=== PATIENT | male | born 1930 | race Caucasian/White ===

== ENCOUNTER 2016-11-21 13:44 | Inpatient (IN) | payer MEDICARE, MEDICAID ==
--- NOTE | 2016-11-21 14:10 | ED Physician Chart ---
Chief Complaint/HPI - Patient Information Date Seen:: 11/21/16 Time Seen:: 13:57 Chief Complaint:: abdominal pain History of Present Illness:: THIS IS AN 86 YO MALE DEMENTED PATIENT [facility] FOR EVALUATION OF HIS ABDOMINAL PAIN. Allergies:: Allergies Allergy/AdvReac Type Severity Reaction Status Date / Time Penicillins Allergy Verified 06/24/16 16:32 Historian:: Medical Records Review:: Nurse's Note Reviewed Review of Systems - Review of Systems General/Constitutional: Fever (THIS PATIENT CANNOT GIVE A REVIEW OF SYSTEMS.), No fever, No chills, No weight loss, No weakness, No diaphoresis, No edema, No loss of appetite Skin: No skin lesions, No rash, No bruising Head: No headache, No light-headedness Eyes: No loss of vision, No pain, No diplopia ENT: No earache, No nasal drainage, No sore throat, No tinnitus Neck: No neck pain, No swelling, No thyromegaly, No stiffness, No mass noted Cardio Vascular: No chest pain, No palpitations, No PND, No orthopnea, No edema Pulmonary: No SOB, No cough, No sputum, No wheezing GI: No nausea, No vomiting, No diarrhea, No pain, No melena, No hematochezia, No constipation, No hematemesis G/U: No dysuria, No frequency, No hematuria Musculoskeletal: No bone or joint pain, No back pain, No muscle pain Endocrine: No polyuria, No polydipsia Psychiatric: No prior psych history, No depression, No anxiety, No suicidal ideation Hematopoietic: No bruising, No lymphadenopathy Allergic/Immuno: No urticaria, No angioedema Neurological: No syncope, No focal symptoms, No weakness, No paresthesia, No headache, No seizure, No dizziness, No confusion, No vertigo Past Medical History - Past Medical History Obtainable: Yes Past Medical History: HTN, Asthma/COPD, Dementia Family History: None Social History: Non Smoker, No Alcohol, No Drug Use Surgical History: None Psychiatricy History: Schizophrenia, Dementia Family Medical History - Family Member Father History Unknown: Yes Physical Exam - Physical Examination General/Constitutional: Awake, Well-developed, well-nourished, Alert, No distress, GCS 15, Non-toxic appearing, Ambulatory Head: Atraumatic Eyes: Lids, conjuctiva normal, PERRL, EOMI Skin: Nl inspection, No rash, No skin lesions, No ecchymosis, Well hydrated, No lymphadenopathy ENMT: External ears, nose nl, Nasal exam nl, Lips, teeth, gums nl Neck: Nontender, Full ROM w/o pain, No JVD, No nuchal rigidity, No bruit, No mass, No stridor Respiratory: Nl effort/Exclusion, Clear to Auscultation, No Wheeze/Rhonchi/Rales Cardio Vascular: RRR, No murmur, gallop, rubs, NL S1 S2 GI: No tenderness/rebounding/guarding, No organomegaly, No hernia, Normal BS's, Nondistended, No mass/bruits, No McBurney tenderness : No CVA tenderness Extremities: No tenderness or effusion, Full ROM, normal strength in all extremities, No edema, Normal digits & nails Neuro/Psych: DTR's symmetric, Normal sensory exam, Normal motor strength, Judgement/insight normal, Mood normal, Normal gait, No focal deficits Other Neuro/Psych comments:: THE PATIENT IS DISORIENTED AND CONFUSED BUT ALERT. Misc: normal gait, Normal back, No paraspinal tenderness Labs/Radiology/EKG Results - Lab Results Results: Laboratory Results - last 24 hr 11/21/16 11/21/16 11/21/16 14:10 17:28 17:28 WBC RBC Hgb Hct MCV MCH MCHC Differential RDW Plt Count MPV Neutrophils % Lymphocytes % Monocytes % Eosinophils % Basophils % PT 9.7 INR 0.98 PTT (Actin FS) 25.0 L Sodium Potassium Chloride Carbon Dioxide Anion Gap BUN Creatinine Est GFR ( Amer) Est GFR (Non-Af Amer) BUN/Creatinine Ratio Glucose Calcium Total Bilirubin AST ALT Alkaline Phosphatase Troponin I Total Protein Albumin Globulin Albumin/Globulin Ratio Triglycerides 426 H Cholesterol 153 LDL Cholesterol Direct 69 L HDL Cholesterol 30 Urine Source CLEAN C Urine Color YELLOW Urine Clarity CLOUDY Urine pH 7.0 Ur Specific [place] 1.020 Urine Protein 30 H Urine Glucose (UA) NEGATIVE Urine Ketones NEGATIVE Urine Blood MODERATE H Urine Nitrate POSITIVE H Urine Bilirubin NEGATIVE Urine Urobilinogen 0.2 Ur Leukocyte Esterase LARGE H Urine RBC 2-5 H Urine WBC >100 H Ur Epithelial Cells FEW Urine Bacteria MANY 11/21/16 11/21/16 11/21/16 17:28 17:28 17:28 WBC 6.3 D RBC 3.52 L Hgb 11.1 L Hct 32.4 L D MCV 92.1 MCH 31.5 H MCHC Differential 34.2 RDW 12.4 Plt Count 297 MPV 7.7 Neutrophils % 63.0 Lymphocytes % 23.7 Monocytes % 8.3 Eosinophils % 4.1 Basophils % 0.9 PT INR PTT (Actin FS) Sodium 139 Potassium 4.3 Chloride 111 H Carbon Dioxide 25.1 Anion Gap 7.2 BUN 46 H Creatinine 1.5 H Est GFR ( Amer) TNP Est GFR (Non-Af Amer) TNP BUN/Creatinine Ratio 30.7 Glucose 113 H Calcium 9.1 Total Bilirubin 0.3 AST 19 ALT 15 Alkaline Phosphatase 74 Troponin I 0.01 Total Protein 6.4 Albumin 3.2 L Globulin 3.2 Albumin/Globulin Ratio 1.0 Triglycerides Cholesterol LDL Cholesterol Direct HDL Cholesterol Urine Source Urine Color Urine Clarity Urine pH Ur Specific [place] Urine Protein Urine Glucose (UA) Urine Ketones Urine Blood Urine Nitrate Urine Bilirubin Urine Urobilinogen Ur Leukocyte Esterase Urine RBC Urine WBC Ur Epithelial Cells Urine Bacteria - Radiology Results Results: no acute disease - EKG Interpretations EKG Time:: 14:28 Rhythm: bradycardia Central: right Rate: 49 ED Septic Shock - . Is Septic Shock (SBP<90, OR Lactate>4 mmol\L) present?: No Reassessment (Disposition) - Reassessment Reassessment Condition:: Unchanged - Diagnosis Diagnosis:: urinary tract infection renal failure dementia bradycardia - Patient Disposition Discharge/Transfer:: Acute Care w/in this hosp Admitted to:: Telemetry Admitting Medical Physician:: Emery Teran Condition at Disposition:: Improved
[2016-11-21 14:40] LABS: URINE BILIRUBIN NEGATIVE (NEGATIVE); URINE BLOOD MODERATE (NEGATIVE); URINE COLOR YELLOW; URINE GLUCOSE (UA) NEGATIVE (NEGATIVE); URINE KETONE NEGATIVE (NEGATIVE); URINE PROTEIN 30 mg/dL (NEGATIVE); URINE UROBILINOGEN 0.2 E.U./dL (0.2 - 1.0)
[2016-11-21 14:46] LABS: URINE BACTERIA MANY /hpf (NONE SEEN); URINE EPITHELIAL CELLS FEW /lpf (FEW)
[2016-11-21 14:47] LABS: URINE WBC >100 /hpf (0-5)
--- NOTE | 2016-11-21 14:56 | Diagnostic Imaging Report ---
Portable chest x-ray History: Shortness of breath Allowing for portable technique the heart size is normal. Atherosclerotic calcification seen in a tortuous aorta. No focal pulmonary parenchymal processes. No hilar or mediastinal abnormalities. Impression: 1. No acute abnormalities 2. Atherosclerotic vascular changes
[2016-11-21 17:44] LABS: % BASOPHILS 0.9 % (0.0-2.0); % EOSINOPHILS 4.1 % (0.0-5.0); % LYMPHOCYTES 23.7 % (20.0-50.0); % MONOCYTES 8.3 % (2.0-10.0); HEMOGLOBIN 11.1 gm/dL (12.6-17.4); MEAN CELL VOLUME 92.1 fl (80-99); MEAN CORPUSCULAR HEMOGLOBIN 31.5 pg (27.0-31.0); MEAN CORPUSCULAR HGB CONC 34.2 pg (28.0-36.0); MEAN PLATELET VOLUME 7.7 fl; NEUTROPHILE ABSOLUTE 3.9 Th/cmm (1.8-8.0); PLATELET COUNT 297 Th/cmm (150-400); RED BLOOD COUNT 3.52 Mil/cmm (3.80-5.80); RED CELL DISTRIBUTION WIDTH 12.4 % (11.5-20.0)
[2016-11-21 17:46] LABS: HEMATOCRIT 32.4 % (39.0-49.0)
[2016-11-21 17:47] LABS: WHITE BLOOD COUNT 6.3 Th/cmm (4.8-10.8)
[2016-11-21 17:51] LABS: INR 0.98 (0.5-1.4); PROTHROMBIN TIME (TEST) 9.7 SECONDS (9.5-11.5)
[2016-11-21 17:54] LABS: ALKALINE PHOSPHATASE 74 U/L (34-104); ANION GAP 7.2 (7.0-16.0); BILIRUBIN,TOTAL 0.3 mg/dL (0.3-1.0); BUN - UREA NITROGEN 46 mg/dL (7-25); BUN/CREATININE RATIO 30.7; CALCIUM SERUM 9.1 mg/dL (8.6-10.3); CARBON DIOXIDE 25.1 mEq/L (21.0-31.0); CHLORIDE 111 mEq/L (98-107); CREATININE - SERUM 1.5 mg/dL (0.7-1.3); GLUCOSE 113 mg/dL (70-105); POTASSIUM SERUM 4.3 mEq/L (3.5-5.1); SGOT 19 U/L (13-39); SGPT/ALT 15 U/L (7-52); SODIUM SERUM 139 mEq/L (136-145)
[2016-11-21 17:55] LABS: CHOLESTEROL 153 mg/dL (<200); TRIGLYCERIDES 426 mg/dL (<150)
[2016-11-21] MEDS ORDERED: Levofloxacin 500mg/100mL 500 MG/100 ML BAG IV ONE ×2 (22:00→23:15)
--- NOTE | 2016-11-21 22:33 | Admit Criteria Form ---
Admit Criteria Forms - Admit Criteria Diagnosis: URINARY COMPLICATIONS Clinical Indications for Inpatient Care (Place 'X' for any and all applicable criteria): Ongoing inpatient care may be indicated for urinary complications with ANY ONE of the following: [X]I. Urinary tract infection requiring inpatient care as indicated by ANY ONE of the following(8)(19)(20): [X]a) Severe symptoms (eg, high fever, severe pain) [ ]b) Vomiting or dehydration requiring ongoing inpatient care [ ]c) IV antibiotic needs that cannot be managed at lower level of care [ ]d) Hemodynamic instability [ ]e) Obstruction of collecting system by stone or tumor [ ]II. Urinary retention requiring drainage or surgery (3)(4)(5)(17)(18) [ ]III. Renal failure (Use Renal Failure Criteria for further information.) [ ]IV. Oliguria(30) [ ]V. Post obstructive diuresis requiring close monitoring of urine output and intravenous compensation for excessive fluid losses(33) Extended stay beyond goal length of stay for primary condition may be needed until ALL of the following are present(3)(4)(5)(8): [ ]a) Renal function (creatinine) at baseline, or daily decreases in creatinine consistent with renal function return [ ]b) Voiding adequately or with urinary catheter or percutaneous suprapubic tube and management regimen in place that is performable at lower level of care. [ ]c) Urine output adequate [ ]d) Fever absent or resolving [ ]e) Infection absent or treatable at next level of care The original [employer] content created by [employer] has been revised. The portions of the content which have been revised are identified through the use of italic text or in bold, and [email or web address] has neither reviewed nor approved the modified material. All other unmodified content is copyright [email or web address] Please see references footnoted in the original [facility] [employer] Twitter Dashboard edition 2016 Admit Criteria Met?: Yes
[2016-11-21] MEDS: Sodium Chloride 0.9% 1,000 ML IV SCH (23:20)
--- NOTE | 2016-11-22 08:38 | General Progress Note ---
Subjective - Review of Systems Service Date: 11/22/16 Subjective: I do not know why I am here. Objective - Results Result Diagrams: 11/21/16 17:28 11/21/16 17: Recent Labs: Laboratory Last Values WBC 6.3 Th/cmm (4.8-10.8) D 11/21/16: RBC 3.52 Mil/cmm (3.80-5.80) L 11/21/16: Hgb 11.1 gm/dL (12.6-17.4) L 11/21/16: Hct 32.4 % (39.0-49.0) L D 11/21/16: MCV 92.1 fl (80-99) 11/21/16: MCH 31.5 pg (27.0-31.0) H 11/21/16: MCHC Differential 34.2 pg (28.0-36.0) 11/21/16: RDW 12.4 % (11.5-20.0) 11/21/16: Plt Count 297 Th/cmm (150-400) 11/21/16: MPV 7.7 fl 11/21/16: Neutrophils % 63.0 % (40.0-80.0) 11/21/16: Lymphocytes % 23.7 % (20.0-50.0) 11/21/16: Monocytes % 8.3 % (2.0-10.0) 11/21/16: Eosinophils % 4.1 % (0.0-5.0) 11/21/16: Basophils % 0.9 % (0.0-2.0) 11/21/16: PT 9.7 SECONDS (9.5-11.5) 11/21/16: INR 0.98 (0.5-1.4) 11/21/16: PTT (Actin FS) 25.0 SECONDS (26.0-38.0) L 11/21/16 17: Sodium 139 mEq/L (136-145) 11/21/16: Potassium 4.3 mEq/L (3.5-5.1) 11/21/16: Chloride 111 mEq/L (98-107) H 11/21/16 17:28 Carbon Dioxide 25.1 mEq/L (21.0-31.0) 11/21/16 17:28 Anion Gap 7.2 (7.0-16.0) 11/21/16 17:28 BUN 46 mg/dL (7-25) H 11/21/16 17:28 Creatinine 1.5 mg/dL (0.7-1.3) H 11/21/16 17:28 Est GFR ( Amer) TNP 11/21/16 17:28 Est GFR (Non-Af Amer) TNP 11/21/16 17:28 BUN/Creatinine Ratio 30.7 11/21/16 17: Glucose 113 mg/dL (70-105) H 11/21/16 17: Calcium 9.1 mg/dL (8.6-10.3) 11/21/16 17:28 Total Bilirubin 0.3 mg/dL (0.3-1.0) 11/21/16 17:28 AST 19 U/L (13-39) 11/21/16 17:28 ALT 15 U/L (7-52) 11/21/16 17:28 Alkaline Phosphatase 74 U/L (34-104) 11/21/16 17:28 Troponin I 0.01 ng/mL (0.01-0.05) 11/21/16 17:28 Total Protein 6.4 gm/dL (6.0-8.3) 11/21/16 17:28 Albumin 3.2 gm/dL (4.2-5.5) L 11/21/16 17:28 Globulin 3.2 gm/dL 11/21/16 17:28 Albumin/Globulin Ratio 1.0 (1.0-1.8) 11/21/16 17:28 Triglycerides 426 mg/dL (<150) H 11/21/16 17:28 Cholesterol 153 mg/dL (<200) 11/21/16 17:28 LDL Cholesterol Direct 69 mg/dL (75-193) L 11/21/16 17:28 HDL Cholesterol 30 mg/dL (23-92) 11/21/16 17:28 TSH 3.65 uIU/ml (0.34-5.60) 11/21/16 17:28 Urine Source CLEAN C 11/21/16 14:10 Urine Color YELLOW 11/21/16 14:10 Urine Clarity CLOUDY (CLEAR) 11/21/16 14:10 Urine pH 7.0 11/21/16 14:10 Ur Specific [place] 1.020 (1.005-1.030) 11/21/16 14:10 Urine Protein 30 mg/dL (NEGATIVE) H 11/21/16 14:10 Urine Glucose (UA) NEGATIVE mg/dL (NEGATIVE) 11/21/16 14:10 Urine Ketones NEGATIVE mg/dL (NEGATIVE) 11/21/16 14:10 Urine Blood MODERATE (NEGATIVE) H 11/21/16 14:10 Urine Nitrate POSITIVE (NEGATIVE) H 11/21/16 14:10 Urine Bilirubin NEGATIVE (NEGATIVE) 11/21/16 14:10 Urine Urobilinogen 0.2 E.U./dL (0.2 - 1.0) 11/21/16 14:10 Ur Leukocyte Esterase LARGE (NEGATIVE) H 11/21/16 14:10 Urine RBC 2-5 /hpf (0-5) H 11/21/16 14:10 Urine WBC >100 /hpf (0-5) H 11/21/16 14:10 Ur Epithelial Cells FEW /lpf (FEW) 11/21/16 14:10 Urine Bacteria MANY /hpf (NONE SEEN) 11/21/16 14:10 RPR NONREACTIVE (NONREACTIVE) 11/21/16 17:28 - Physical Exam Vitals and I&O: Vital Signs Temp 97.1 F 11/22/16 04:05 Pulse 60 11/22/16 04:05 Resp 18 11/22/16 04:05 BP 130/68 11/22/16 04:05 Pulse Ox 96 11/22/16 04:05 Intake & Output 11/21/16 11/22/16 11/22/16 18:59 06:59 18:59 Intake Total 120 Balance 120 Intake: Oral 120 Other: # Voids 3 # Bowel Movements 0 Active Medications: Current Medications Acetaminophen (Tylenol) 650 mg PO Q4HR PRN PRN Reason: Pain Or Fever >100.5 Stop: 01/20/17 21:45 Clonidine HCl (Catapres) 0.1 mg PO Q12H PRN PRN Reason: SBP> 160 OR DBP> 100 Stop: 01/20/17 21:45 Docusate Sodium (Colace) 200 mg PO DAILY [facility] Stop: 01/21/17 08:59 Sodium Chloride (Nacl 0.9%) 1,000 mls @ 75 mls/hr IV .[id number] ADAN Stop: 01/20/17 21:59 Last Admin: 11/21/16 23:20 Dose: 75 mls/hr Levofloxacin (Levaquin Pb) 250 mg in 50 mls @ 50 mls/hr IV Q24HR ADAN Stop: 01/21/17 20:59 Lorazepam (Ativan) 1 mg IVP Q6HR PRN; Protocol PRN Reason: Agitation Stop: 01/20/17 21:52 Miscellaneous (Haloperidol Decanoate [Haldol Decanoate]) 25 mg IM [id number] ADAN Stop: 01/20/17 21:59 Olmesartan (Benicar) 20 mg PO DAILY [facility] Stop: 01/21/17 08:59 General: Alert, Other (Confused) HEENT: Atraumatic Neck: Supple Cardiovascular: Regular rate Lungs: Clear to auscultation Abdomen: Bowel sounds, Soft Extremities: Other (No edema) Neurological: Normal gait Skin: Other (Warm and dry) Psych/Mental Status: Other (Confused) - Procedures Procedures: Procedures Procedure Code Date GROUP PSYCHOTHERAPY 49879 12/28/15 GROUP PSYCHOTHERAPY [id number] 12/28/15 INDIVID PSYCHOTHERAP NEC 94.39 09/01/09 OTHER GROUP THERAPY 94.44 04/04/15 RECREATIONAL THERAPY 93.81 12/08/09 Assessment/Plan - Problem List Patient Problems: All Active Problems Chronic obstructive pulmonary disease (COPD) (Acute) Hypertension (Acute) I10 Itching (Acute) L29.9 Mental health problem (Acute) F48.9 Mood swings (Acute) F39 - Assessment Assessment: Patient is awake, confused, not oriented. Dx: UTI, Bradychardia, JEREMIAS, HTN, Dementia. - Plan Plan: Patient on IV NS, Levaquin, SNF meds, awaiting Cardio and Nephro eval.
--- NOTE | 2016-11-22 10:39 | History & Physical ---
CHIEF COMPLAINT: Abdominal pain. HISTORY OF PRESENT ILLNESS: This is a case of an 86-year-old white male that I follow in the snf. I got a call from snf stating the patient has been complaining of abdominal pain, reason why the patient was sent to Emergency Room for evaluation and treatment. During the evaluation in ER, it was found that the patient had bradycardia and UTI, reason why the patient was hospitalized. PAST MEDICAL HISTORY: The patient has past medical history of hypertension, COPD and dementia. FAMILY HISTORY: Unremarkable. SOCIAL HISTORY: The patient is a permanent resident of a snf. ALLERGIES: PENICILLIN. PAST SURGICAL HISTORY: None. REVIEW OF SYSTEMS: LUNGS: The patient denies shortness of breath. HEART: The patient denies chest pain. ABDOMEN: The patient referred abdominal pain. EXTREMITIES: Unremarkable. NEUROLOGICAL: Unremarkable. The patient is ____. The patient is confused. PHYSICAL EXAMINATION: GENERAL: Does reveal a fairly nourished and developed white male, awake, alert and complaining of abdominal pain. HEENT: Head is normocephalic and atraumatic. Eyes: Pupils reactive to light. Fundi not examined at this time. Nose: No evidence of nasal obstruction. Ears: No evidence of any discharge. Mouth: Fairly ____. LUNGS: Bilateral air entry. No wheezing, no crackles. HEART: Regular rate and rhythm with some bradycardia. ABDOMEN: Soft and ____. Bowel sound is present. EXTREMITIES: No edema. Full movement of all extremities. NEUROLOGICAL: The patient is awake, alert, confused, not oriented. Neurological examination was not completed secondary to the patient's mental confusion. DIAGNOSES: 1. Urinary tract infection. 2. Bradycardia. 3. Acute renal failure. 4. Dementia. PLAN: 1. The patient will be admitted in the telemetry unit. 2. Consult with Cardiology. 3. Consult with Nephrology. 4. Continue with snf medications. 5. Levaquin IV. 6. DIET: Low in sodium. 7. CBC, CMP at a.m. JOB# [id number]
[2016-11-22] MEDS ORDERED: Influenza Vaccine 0.5 mL Syr IM ONE (13:37)
[2016-11-22] MEDS: Sodium Chloride 0.9% 1,000 ML IV SCH (15:43)
[2016-11-22] MEDS ORDERED: Levofloxacin 250 mg/50 mL Premix Bag IV SCH (21:00)
--- NOTE | 2016-11-23 02:22 | Consultation ---
Patient of Dr. Emery Teran. HISTORY AND PHYSICAL: This is an 86-year-old male patient who has a known history of hypertension, came into the hospital from residential with abdominal pain, no nausea. The patient had sinus bradycardia and hence, Cardiology consult was requested. PAST MEDICAL HISTORY: Hypertension, dementia and COPD. FAMILY HISTORY: Unremarkable. SOCIAL HISTORY: No history of smoking, alcohol abuse. ALLERGIES: None. PHYSICAL EXAMINATION: VITAL SIGNS: Blood pressure 130/80, pulse 60, respirations 20. HEAD: Normocephalic. No lumps or bumps. EYES: Pupils equal, reactive to light. Fundi show AV nicking. Sclerae white. Conjunctivae pink. NECK: Carotid 2+. Normal upstroke. JVD flat. Thyroid not palpable. Lymph nodes not palpable. CHEST: Shows increased AP diameter. No kyphosis, scoliosis. LUNGS: Bilateral bronchovesicular breath sounds. HEART: PMI is in fifth intercostal space with lateral to midclavicular line. S1, S2. No S3, S4. Systolic murmur grade 2/6 in the lower left sternal border without radiation. ABDOMEN: Soft. Liver, spleen not palpable. Mild tenderness. No rebound tenderness. Bowel sounds active. RECTAL: Prostate is enlarged. EXTREMITIES: Peripheral pulses 2+. No pedal edema. CLINICAL IMPRESSION: 1. Urinary tract infection. 2. Sinus bradycardia. 3. Chronic kidney disease, stage II. 4. Dementia. 5. Benign prostatic hypertrophy. 6. Chronic obstructive pulmonary disease. PLAN: The patient to continue present care. Monitor the patient on telemetry bed. Also get an echocardiogram. JOB# [id number]
--- NOTE | 2016-11-23 06:21 | Consultation ---
ATTENDING PHYSICIAN: Emery Teran M.D. CONSULTING PHYSICIAN: Yovany Payton M.D. REASON FOR CONSULTATION: Worsening kidney function, electrolyte imbalance and fluid management. HISTORY OF PRESENT ILLNESS: This is an 86-year-old male with past medical history of COPD who came in because of right lower quadrant abdominal pain. A few hours prior to admission, the patient experienced right lower quadrant abdominal pain. He had no nausea and vomiting, diarrhea, constipation, fever/chills, dysuria, hematuria nor frequency. He had foul smelling urine. He was then brought to the Emergency Room. His white count was 6.3. Urinalysis was suggestive of UTI and chest x-ray revealed no acute disease. PAST MEDICAL HISTORY: 1. COPD. 2. Essential hypertension. 3. Alzheimer dementia. 4. Schizophrenia. 5. Bronchial asthma. CURRENT MEDICATIONS: He is currently on acetaminophen, docusate, haloperidol, levofloxacin, lorazepam, olmesartan, ceftriaxone and clonidine. ALLERGY: Penicillin. SOCIAL HISTORY: No history of smoking as well as alcohol consumption. He is currently retired, but does not remember his previous occupation. FAMILY HISTORY: Noncontributory to present illness. REVIEW OF SYSTEMS: GENERAL: The patient had no fever and no chills. Appetite had been fair. Has generalized weakness. HEENT: No mention of headaches nor dizziness. Vision and hearing acuity has diminished. CARDIORESPIRATORY: He has a history of COPD. However, at the moment he has no shortness of breath, chest pain, palpitations, diaphoresis or cough. GASTROINTESTINAL: He had no nausea and vomiting, abdominal pain or cramping, hematemesis, melena or hematochezia and no diarrhea. ENDOCRINE: No history of diabetes or thyroid abnormalities nor dyslipidemia. MUSCULOSKELETAL: Multiple joint arthralgias. GENITOURINARY: No history of kidney failure in the past. However, he comes in now with some kidney insufficiency. HEMATOLOGIC: He has mild anemia. NEUROLOGIC AND PSYCHIATRIC: History of schizophrenia and Alzheimer's dementia. However, does not have any syncopal episode nor seizure activity. PHYSICAL EXAMINATION: NEUROLOGIC: The patient is awake, verbal and comfortable. VITAL SIGNS: Blood pressure is 141/68, pulse 56 and temperature 97.1 degrees. SKIN: Good turgor and warm. No rash or jaundice appreciated. HEENT: Head: Normocephalic and atraumatic. Eyes: Extraocular muscles intact. Pupils equal, round and reactive to light and accommodates, anicteric sclerae, pink conjunctivae. Nose: Midline nasal septum. Mouth: Moist mucosa with adequate dentition. NECK: Supple. No adenopathy, no thyromegaly and no bruits. Trachea palpated in the midline. CHEST AND CVS: S1 and S2, bradycardic, but no rub or murmur nor gallop appreciated. Point of maximal impulse is in the fifth intercostal space, left midclavicular line. No abdominal or femoral bruits appreciated. LUNGS: Equal expansion. No use of accessory muscles. No supraclavicular retractions. Clear to auscultation without any wheeze. ABDOMEN: Flat and soft. Positive for bowel sounds. No tenderness on palpation especially in his right lower quadrant. No rebound, nor guarding. No bruits either diastolic or systolic. RECTAL: The patient refused. GENITOURINARY: Normal appearing male genitalia. MUSCULOSKELETAL: No effusions present in his joints, but unable to assess his range of motion. EXTREMITIES: No evidence of edema, cyanosis nor clubbing with palpable femoral, but unable to fully appreciate popliteal and dorsalis pedis pulses. NEUROLOGIC: The patient is alert and verbal. Motor is 5/5. Cranial nerves 2-12 intact. Sensory intact. LABORATORY DATA: Sodium 139, potassium 4.3, chloride 111, bicarbonate 25, BUN 46, creatinine 1.5, glucose 113, calcium 9.1 and albumin 3.2. White count 6.3, hemoglobin 11.1, hematocrit is 32.4, polys 63% and platelets 297. TSH is 3.65. IMPRESSION: 1. Acute kidney injury, MDRD GFR 47.1 mL per minute. The patient's acute kidney injury is likely due to presence of ongoing urinary tract infection. ____ could eventually give rise to acute interstitial nephritis. 2. COPD. 3. Essential hypertension. 4. Alzheimer dementia. 5. Schizophrenia. 6. Bronchial asthma. 7. Asymptomatic paroxysmal bradycardia. 8. Abdominal pain likely due to complicated UTI. PLAN: 1. Continue with IV fluids. 2. Urine C and S. 3. Urine sodium, eosinophils and creatinine. 4. Urine microalbumin to creatinine ratio. 5. Abdominal/renal ultrasound. 6. Continue with antibiotics. Thank you, Dr. Teran for this consult. I will follow the patient closely with you. JOB# [id number]
--- NOTE | 2016-11-23 14:18 | General Progress Note ---
Subjective - Review of Systems Service Date: 11/23/16 Subjective: alert, refusing blood draw Objective - Results Result Diagrams: 11/21/16 17:11/21/16: Recent Labs: Laboratory Last Values WBC 6.3 Th/cmm (4.8-10.8) D 11/21/16: RBC 3.52 Mil/cmm (3.80-5.80) L 11/21/16: Hgb 11.1 gm/dL (12.6-17.4) L 11/21/16: Hct 32.4 % (39.0-49.0) L D 11/21/16: MCV 92.1 fl (80-99) 11/21/16: MCH 31.5 pg (27.0-31.0) H 11/21/16: MCHC Differential 34.2 pg (28.0-36.0) 11/21/16: RDW 12.4 % (11.5-20.0) 11/21/16: Plt Count 297 Th/cmm (150-400) 11/21/16: MPV 7.7 fl 11/21/16: Neutrophils % 63.0 % (40.0-80.0) 11/21/16: Lymphocytes % 23.7 % (20.0-50.0) 11/21/16 Monocytes % 8.3 % (2.0-10.0) 11/21/16 Eosinophils % 4.1 % (0.0-5.0) 11/21/16: Basophils % 0.9 % (0.0-2.0) 11/21/16: PT 9.7 SECONDS (9.5-11.5) 11/21/16: INR 0.98 (0.5-1.4) 11/21/16 PTT (Actin FS) 25.0 SECONDS (26.0-38.0) L 11/21/16: Sodium 139 mEq/L (136-145) 11/21/16: Potassium 4.3 mEq/L (3.5-5.1) 11/21/16: Chloride 111 mEq/L (98-107) H 11/21/16 17:28 Carbon Dioxide 25.1 mEq/L (21.0-31.0) 11/21/16 17:28 Anion Gap 7.2 (7.0-16.0) 11/21/16 17:28 BUN 46 mg/dL (7-25) H 11/21/16 17:28 Creatinine 1.5 mg/dL (0.7-1.3) H 11/21/16 17:28 Est GFR ( Amer) TNP 11/21/16 17:28 Est GFR (Non-Af Amer) TNP 11/21/16 17:28 BUN/Creatinine Ratio 30.7 11/21/16 17:28 Glucose 113 mg/dL (70-105) H 11/21/16 17:28 Calcium 9.1 mg/dL (8.6-10.3) 11/21/16 17:28 Total Bilirubin 0.3 mg/dL (0.3-1.0) 11/21/16 17:28 AST 19 U/L (13-39) 11/21/16 17:28 ALT 15 U/L (7-52) 11/21/16 17:28 Alkaline Phosphatase 74 U/L (34-104) 11/21/16 17:28 Troponin I 0.01 ng/mL (0.01-0.05) 11/21/16 17:28 Total Protein 6.4 gm/dL (6.0-8.3) 11/21/16 17:28 Albumin 3.2 gm/dL (4.2-5.5) L 11/21/16 17:28 Globulin 3.2 gm/dL 11/21/16 17:28 Albumin/Globulin Ratio 1.0 (1.0-1.8) 11/21/16 17:28 Triglycerides 426 mg/dL (<150) H 11/21/16 17:28 Cholesterol 153 mg/dL (<200) 11/21/16 17:28 LDL Cholesterol Direct 69 mg/dL (75-193) L 11/21/16 17:28 HDL Cholesterol 30 mg/dL (23-92) 11/21/16 17:28 TSH 3.65 uIU/ml (0.34-5.60) 11/21/16 17:28 Urine Source CLEAN C 11/21/16 14:10 Urine Color YELLOW 11/21/16 14:10 Urine Clarity CLOUDY (CLEAR) 11/21/16 14:10 Urine pH 7.0 11/21/16 14:10 Ur Specific [place] 1.020 (1.005-1.030) 11/21/16 14:10 Urine Protein 30 mg/dL (NEGATIVE) H 11/21/16 14:10 Urine Glucose (UA) NEGATIVE mg/dL (NEGATIVE) 11/21/16 14:10 Urine Ketones NEGATIVE mg/dL (NEGATIVE) 11/21/16 14:10 Urine Blood MODERATE (NEGATIVE) H 11/21/16 14:10 Urine Nitrate POSITIVE (NEGATIVE) H 11/21/16 14:10 Urine Bilirubin NEGATIVE (NEGATIVE) 11/21/16 14:10 Urine Urobilinogen 0.2 E.U./dL (0.2 - 1.0) 11/21/16 14:10 Ur Leukocyte Esterase LARGE (NEGATIVE) H 11/21/16 14:10 Urine RBC 2-5 /hpf (0-5) H 11/21/16 14:10 Urine WBC >100 /hpf (0-5) H 11/21/16 14:10 Ur Epithelial Cells FEW /lpf (FEW) 11/21/16 14:10 Urine Bacteria MANY /hpf (NONE SEEN) 11/21/16 14:10 RPR NONREACTIVE (NONREACTIVE) 11/21/16 17:28 - Physical Exam Vitals and I&O: Vital Signs Temp 97.7 F 11/23/16 12:28 Pulse 62 11/23/16 12:28 Resp 18 11/23/16 12:28 BP 111/69 11/23/16 12:28 Pulse Ox 94 11/23/16 12:28 Intake & Output 11/22/16 11/23/16 11/23/16 18:59 06:59 18:59 Intake Total 400 200 Balance 400 200 Intake: Oral 400 200 Other: # Voids 3 3 # Bowel Movements 0 0 Active Medications: Current Medications Acetaminophen (Tylenol) 650 mg PO Q4HR PRN PRN Reason: Pain Or Fever >100.5 Stop: 01/20/17 21:45 Clonidine HCl (Catapres) 0.1 mg PO Q12H PRN PRN Reason: SBP> 160 OR DBP> 100 Stop: 01/20/17 21:45 Docusate Sodium (Colace) 200 mg PO DAILY [facility] Stop: 01/21/17 08:59 Last Admin: 11/23/16 09:08 Dose: Not Given Haloperidol Decanoate (Haldol Dec) 25 mg IM [id number] [facility] Stop: 01/21/17 16:59 Last Admin: 11/22/16 18:10 Dose: 25 mg Sodium Chloride (Nacl 0.9%) 1,000 mls @ 75 mls/hr IV [id number] ADAN Stop: 01/20/17 21:59 Last Admin: 11/22/16 15:43 Dose: Not Given Levofloxacin (Levaquin Pb) 250 mg in 50 mls @ 50 mls/hr IV Q24HR ADAN Stop: 01/21/17 20:59 Last Admin: 11/22/16 22:00 Dose: Not Given Lorazepam (Ativan) 1 mg IVP Q6HR PRN; Protocol PRN Reason: Agitation Stop: 01/20/17 21:52 Lorazepam (Ativan) 1 mg IM Q6HR PRN; Protocol PRN Reason: Agitation Stop: 01/21/17 22:24 Last Admin: 11/23/16 00:23 Dose: 1 mg Lorazepam (Ativan) 0.5 mg PO Q4HR PRN; Protocol PRN Reason: Anxiety Stop: 01/22/17 13:43 Olmesartan (Benicar) 20 mg PO DAILY [facility] Stop: 01/21/17 08:59 Last Admin: 11/23/16 09:08 Dose: Not Given General: Alert, No acute distress, Other (uncooperative) HEENT: Atraumatic, Mucous membr. moist/pink Neck: Supple, +2 carotid pulse wo bruit Cardiovascular: Regular rate, Normal S1, Normal S2 Lungs: Clear to auscultation Abdomen: Bowel sounds, Soft Extremities: no Edema Neurological: Sensation intact Skin: no Rash Psych/Mental Status: Other (uncooperative) - Procedures Procedures: Procedures Procedure Code Date GROUP PSYCHOTHERAPY 66431 12/28/15 GROUP PSYCHOTHERAPY GZHZZZZ 12/28/15 INDIVID PSYCHOTHERAP NEC 94.39 09/01/09 OTHER GROUP THERAPY 94.44 04/04/15 RECREATIONAL THERAPY 93.81 12/08/09 Assessment/Plan - Problem List Patient Problems: All Active Problems Chronic obstructive pulmonary disease (COPD) (Acute) Hypertension (Acute) I10 Itching (Acute) L29.9 Mental health problem (Acute) F48.9 Mood swings (Acute) F39 - Assessment Assessment: aissatou copd ess htn alzh dementia BA ASx paroxysmal daryl abd pain 2nd to Cx UTI - Plan Plan: continue ivf encourage po intake remains ASx w/ regard to daryl
== END 2016-11-23 18:16 | DRG 683 ==
LOC: ER 13:44 → TELE 19:21 → MSI 11-23 08:44
PROVIDERS: ADMIT General Practice; ATTEND General Practice
DX: N17.9 Acute kidney failure, unspecified (principal); N39.0 Urinary tract infection, site not specified; R00.1 Bradycardia, unspecified; J44.9 Chronic obstructive pulmonary disease, unspecified; F20.9 Schizophrenia, unspecified; N40.0 Benign prostatic hyperplasia without lower urinary tract symptoms; G30.9 Alzheimer's disease, unspecified; F02.80 Dementia in other diseases classified elsewhere, unspecified severity, without behavioral disturbance, psychotic disturbance, mood disturbance, and anxiety; N18.2 Chronic kidney disease, stage 2 (mild); I12.9 Hypertensive chronic kidney disease with stage 1 through stage 4 chronic kidney disease, or unspecified chronic kidney disease; J45.909 Unspecified asthma, uncomplicated; Z88.0 Allergy status to penicillin
CPT/HCPCS: 36415-UA; 71010-TC; 80053-TC; 80061-TC; 81001-TC; 84443-TC; 84484-TC; 85025-TC; 85610-TC; 85730-TC; 86592-TC; 87086-90; 93005; J0696; J1631; J1956; J2060; J7030; Z7610

== ENCOUNTER 2016-11-23 18:16 | Inpatient (IN) | payer MEDICARE, MEDICAID ==
--- NOTE | 2016-11-23 19:00 | Cardiology ---
The patient of Dr. Teran. M-MODE ECHOCARDIOGRAM: Mitral Valve: Anterior leaflet of the mitral valve shows normal excursion, EF velocity. Posterior leaflet of the mitral valve shows normal excursion. Left ventricular posterior wall shows increased thickness, normal excursion. Interventricular septum shows increased thickness, normal excursion, hypertrophy of the left ventricle, ejection fraction 50%. Left atrium normal. Aortic root shows normal dimension, normal excursion of aortic leaflets. CONCLUSION: Hypertrophy of the left ventricle, ejection fraction 50%. 2D ECHO: Long axis view shows normal-sized left ventricle with hypertrophy of the left ventricle. Left atrium normal. Aortic root shows normal dimension, normal excursion of aortic leaflets. Short axis view of mitral valve normal. Short axis view of aortic valve normal. Apical four-chamber view showed normal-sized left ventricle, left atrium, right ventricle, right atrium, tricuspid valve and mitral valve. CONCLUSION: Hypertrophy of the left ventricle, ejection fraction 50%. Doppler study shows trace mitral regurgitation, tricuspid regurgitation, mild aortic regurgitation. [facility]# [id number]
[2016-11-23 21:29] VITALS: BP 135/78
[2016-11-23] MEDS ORDERED: Maalox 30 mL Cup PO PRN (21:43)
[2016-11-23] MEDS ORDERED: Magnesium Hydroxide (MOM) 30 mL UDC PO PRN (21:43)
[2016-11-24] MEDS ORDERED: HALOPERIDOL DECANOATE 25 MG IM SCH (01:00)
--- NOTE | 2016-11-24 06:09 | Consultation ---
The patient was seen, chart reviewed, discussed with staff. HISTORY OF PRESENT ILLNESS: The patient is an 86-year-old male with a history of schizoaffective disorder and dementia, Alzheimer's type. He has been refusing care, refusing treatment. He was sent from his half-way facility, currently on medical floor. The patient has been agitated, angry, irritable. The patient was yelling at the nursing staff, accusing them of causing him to have problems. PAST PSYCHIATRIC HISTORY: Multiple psychiatric hospitalizations, history of psychosis, paranoia and dementia. PAST MEDICAL HISTORY: As per H and P. PSYCHOSOCIAL HISTORY: The patient resides at [facility]. He requires complete care. MENTAL STATUS EXAMINATION: The patient is disheveled, unkempt. He is oriented to person, knew he is in some kind of hospital, did not know the name of the hospital. The patient was yelling at times. The patient is highly paranoid, suspicious, delusional, thinking that people are out to get him and they plan to harm him. 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 PLAN: At this time, the patient has poor insight to his problem. He is highly paranoid and agitated. He is refusing care. At this time, he is considered lacking capacity for self-care and his half-way is having difficulty taking care of him. Psychiatric hospitalization would be beneficial to help the patient to improve his compliance. We will monitor closely. JOB# [id number]
--- NOTE | 2016-11-25 00:53 | Psychosocial Evaluation ---
CHIEF COMPLAINT: "Leave me alone." HISTORY OF PRESENT ILLNESS: The patient is an 86-year-old male with a history of psychosis and dementia, has been agitated, angry, irritable, refusing care, refusing medications, sent from his [facility] facility. The patient has been more combative recently. The patient on medical floor was refusing treatment. The patient appears to be confused and paranoid, thinking that people are playing tricks on him or somebody is trying to poison him. PAST PSYCHIATRIC HISTORY: Prior hospitalizations, history of mental illness. PAST MEDICAL HISTORY: As per Dr. Teran. PSYCHOSOCIAL HISTORY: The patient resides at a [facility] facility and requires complete care. MENTAL STATUS EXAMINATION: The patient is uncooperative, disheveled, appears to be older than his stated age, speech is loud and fast at times. Affect is dysphoric, irritable. The patient is highly paranoid, suspicious, is oriented to person, knows he was in some kind of hospital, did not know the name of the hospital, not oriented to time. PATIENT'S STRENGTHS: The patient at times passively accepts treatment, but he refuses medications. PATIENT'S WEAKNESS: Lack of insight. 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 Medical, as per medical history. PLAN: We will admit the patient for hospitalization. We will start individual and group therapy, assess psychopharmacological intervention. The patient is usually taking Haldol Decanoate to help improve compliance. If the patient continues to refuse, we will consider R[place]e. ESTIMATED LENGTH OF STAY: 7 days. CRITERIA FOR DISCHARGE: Improved condition, resolution of symptoms, no agitation and safe disposition outpatient treatment plan. JOB# [id number]
--- NOTE | 2016-11-25 08:02 | General Progress Note ---
Subjective - Review of Systems Service Date: 11/25/16 Subjective: Confused Objective - Physical Exam Vitals and I&O: Vital Signs Temp 97.6 F 11/24/16 07:11 Pulse 61 11/24/16 09:31 Resp 19 11/24/16 07:11 BP 141/75 11/24/16 09:31 Pulse Ox 96 11/24/16 07:11 Intake & Output 11/24/16 11/25/16 11/25/16 18:59 06:59 18:59 Other: # Voids 2 Active Medications: Current Medications Acetaminophen (Tylenol) 650 mg PO Q4HR PRN PRN Reason: Pain Or Fever >100.5 Stop: 01/23/17 00:57 Al Hydrox/Mg Hydrox/Simethicone (Maalox) 30 ml PO Q4HR PRN PRN Reason: GI DISTRESS Stop: 01/22/17 21:42 Clonidine HCl (Catapres) 0.1 mg PO Q12H PRN PRN Reason: SBP> 160 OR DBP> 100 Stop: 01/23/17 00:57 Docusate Sodium (Colace) 200 mg PO DAILY [facility] Stop: 01/23/17 08:59 Last Admin: 11/24/16 09:31 Dose: Not Given Haloperidol Decanoate (Haldol Dec) 25 mg IM [id number] [facility] Stop: 01/23/17 07:29 Last Admin: 11/24/16 12:26 Dose: 25 mg Lorazepam (Ativan) 0.5 mg PO Q4HR PRN; Protocol PRN Reason: Anxiety Stop: 12/23/16 18:59 Olmesartan (Benicar) 20 mg PO DAILY [facility] Stop: 01/23/17 08:59 Last Admin: 11/24/16 09:31 Dose: Not Given Zolpidem Tartrate (Ambien) 5 mg PO HS PRN PRN Reason: Insomnia Stop: 01/22/17 21:42 General: Other (Sleeping but arousable, confused) HEENT: Atraumatic Neck: Supple Cardiovascular: Regular rate Lungs: Clear to auscultation Abdomen: Bowel sounds, Soft Extremities: Other (No edema) Neurological: Other (Unstable gait) Skin: Other (Warm and dry) Psych/Mental Status: Other (Confused) - Procedures Procedures: Procedures Procedure Code Date GROUP PSYCHOTHERAPY 81533 12/28/15 GROUP PSYCHOTHERAPY GZHZZZZ 12/28/15 INDIVID PSYCHOTHERAP NEC 94.39 09/01/09 OTHER GROUP THERAPY 94.44 04/04/15 RECREATIONAL THERAPY 93.81 12/08/09 Assessment/Plan - Problem List Patient Problems: All Active Problems Chronic obstructive pulmonary disease (COPD) (Acute) Hypertension (Acute) I10 Itching (Acute) L29.9 Mental health problem (Acute) F48.9 Mood swings (Acute) F39 - Assessment Assessment: Patient is sleeping but arousable, in no acute distress. - Plan Plan: Will continue with to monitor
--- NOTE | 2016-11-25 09:39 | History & Physical ---
CHIEF COMPLAINT: Dementia. HISTORY OF PRESENT ILLNESS: This is a case of an 86-year-old white male who was hospitalized on medical surgical floor secondary to abdominal pain, UTI, and bradycardia. The patient was responding to treatment, but Psychiatry decided to send the patient to Geropsych Unit secondary to increasing confusion. PAST MEDICAL HISTORY: The patient has past medical history of hypertension, COPD and dementia. SOCIAL HISTORY: The patient is a permanent resident of a longterm. FAMILY HISTORY: Unremarkable. ALLERGIES: PENICILLIN. PAST SURGICAL HISTORY: None. REVIEW OF SYSTEMS: LUNGS: The patient denies shortness of breath. HEART: The patient denies chest pain. ABDOMEN: Unremarkable. EXTREMITIES: Unremarkable. NEUROLOGICAL: Noncontributory. PHYSICAL EXAMINATION: GENERAL: Does reveal a fairly nourished and developed white male awake, alert, confused, not oriented. HEENT: Head is normocephalic and atraumatic. Eyes: Pupils reactive to light. Fundus not examined at this time. Nose: No evidence of nasal obstruction. Ears: No evidence of any discharge. Mouth: Fairly ____. LUNGS: Bilateral decreased air entry. HEART: Regular rhythmic. ABDOMEN: Soft, nontender, bowel sound present. EXTREMITIES: No edema. Full movement of all extremities. NEUROLOGICAL: The patient is awake, alert, confused, not oriented. Neurological examination was not completed secondary to the patient's mental condition. DIAGNOSES: 1. Increase in agitation. 2. Dementia. 3. Chronic obstructive pulmonary disease. PLAN: 1. The patient will be admitted in the Geropsych Unit. 2. Continue with longterm medications. 3. The patient will be followed by Psychiatry. JOB# [id number]
--- NOTE | 2016-11-26 04:49 | Progress Notes ---
SUBJECTIVE: The patient was seen, discussed with staff. He remains guarded, irritable, still agitated and suspicious, still paranoid; however, he took his Haldol Decanoate yesterday. So far, he has no EPS or sedation. The patient at times continues to refuse care and refuses medications. ASSESSMENT: The patient is still in disorganized state. The patient is highly paranoid. PLAN: We will continue hospitalization, continue supportive measures, monitor closely. JOB# [id number]
--- NOTE | 2016-11-26 08:50 | General Progress Note ---
Subjective - Review of Systems Service Date: 11/26/16 Subjective: Confused Objective - Physical Exam Vitals and I&O: Vital Signs Temp 97.4 F 11/26/16 06:59 Pulse 70 11/26/16 06:59 Resp 18 11/26/16 06:59 BP 107/66 11/26/16 06:59 Pulse Ox 97 11/26/16 06:59 Intake & Output 11/25/16 11/26/16 11/26/16 18:59 06:59 18:59 Intake Total 800 240 Balance 800 240 Intake: Oral 800 240 Other: # Voids 3 2 # Bowel Movements 0 Active Medications: Current Medications Acetaminophen (Tylenol) 650 mg PO Q4HR PRN PRN Reason: Pain Or Fever >100.5 Stop: 01/23/17 00:57 Al Hydrox/Mg Hydrox/Simethicone (Maalox) 30 ml PO Q4HR PRN PRN Reason: GI DISTRESS Stop: 01/22/17 21:42 Clonidine HCl (Catapres) 0.1 mg PO Q12H PRN PRN Reason: SBP> 160 OR DBP> 100 Stop: 01/23/17 00:57 Docusate Sodium (Colace) 200 mg PO DAILY [facility] Stop: 01/23/17 08:59 Last Admin: 11/25/16 08:31 Dose: Not Given Haloperidol Decanoate (Haldol Dec) 25 mg IM [id number] [facility] Stop: 01/23/17 07:29 Last Admin: 11/24/16 12:26 Dose: 25 mg Lorazepam (Ativan) 0.5 mg PO Q4HR PRN; Protocol PRN Reason: Anxiety Stop: 12/23/16 18:59 Olmesartan (Benicar) 20 mg PO DAILY [facility] Stop: 01/23/17 08:59 Last Admin: 11/25/16 08:31 Dose: Not Given Zolpidem Tartrate (Ambien) 5 mg PO HS PRN PRN Reason: Insomnia Stop: 01/22/17 21:42 General: Alert, Other (Confused) HEENT: Atraumatic Neck: Supple Cardiovascular: Regular rate Lungs: Clear to auscultation Abdomen: Bowel sounds, Soft Extremities: Other (No edema) Neurological: Normal gait Skin: Other (Warm and dry) Psych/Mental Status: Other (Confused) - Procedures Procedures: Procedures Procedure Code Date GROUP PSYCHOTHERAPY 84755 12/28/15 GROUP PSYCHOTHERAPY GZHZZZZ 12/28/15 INDIVID PSYCHOTHERAP NEC 94.39 09/01/09 OTHER GROUP THERAPY 94.44 04/04/15 RECREATIONAL THERAPY 93.81 12/08/09 Assessment/Plan - Problem List Patient Problems: All Active Problems Chronic obstructive pulmonary disease (COPD) (Acute) Hypertension (Acute) I10 Itching (Acute) L29.9 Mental health problem (Acute) F48.9 Mood swings (Acute) F39 - Assessment Assessment: Patient is sleeping but arousable, in no acute distress. - Plan Plan: Will continue with to monitor
--- NOTE | 2016-11-27 04:55 | Progress Notes ---
SUBJECTIVE: The patient was seen, discussed with with staff. The patient was in the dining room, ate most of his lunch. The patient's appetite is improving, but his insight is still poor. The patient continues to have some anger outbursts and some agitation, especially when the staff was trying to assist him he becomes combative. The patient is oriented to person ____ the hospital, did not know that he is in the hospital, did not know how old he is. ASSESSMENT: The patient is still agitated and paranoid. PLAN: We will continue medication management. Continue stabilization. Encourage the patient to comply with treatment. JOB# [id number]
--- NOTE | 2016-11-27 09:11 | General Progress Note ---
Subjective - Review of Systems Service Date: 11/27/16 Subjective: Confused Objective - Physical Exam Vitals and I&O: Vital Signs Temp 97.5 F 11/27/16 07:04 Pulse 66 11/27/16 07:04 Resp 18 11/27/16 07:04 BP 138/62 11/27/16 07:04 Pulse Ox 97 11/27/16 07:04 Intake & Output 11/26/16 11/27/16 11/27/16 18:59 06:59 18:59 Intake Total 800 120 Balance 800 120 Intake: Oral 800 120 Other: # Voids 3 3 # Bowel Movements 0 Active Medications: Current Medications Acetaminophen (Tylenol) 650 mg PO Q4HR PRN PRN Reason: Pain Or Fever >100.5 Stop: 01/23/17 00:57 Al Hydrox/Mg Hydrox/Simethicone (Maalox) 30 ml PO Q4HR PRN PRN Reason: GI DISTRESS Stop: 01/22/17 21:42 Clonidine HCl (Catapres) 0.1 mg PO Q12H PRN PRN Reason: SBP> 160 OR DBP> 100 Stop: 01/23/17 00:57 Docusate Sodium (Colace) 200 mg PO DAILY [facility] Stop: 01/23/17 08:59 Last Admin: 11/27/16 08:22 Dose: Not Given Haloperidol Decanoate (Haldol Dec) 25 mg IM [id number] [facility] Stop: 01/23/17 07:29 Last Admin: 11/24/16 12:26 Dose: 25 mg Lorazepam (Ativan) 0.5 mg PO Q4HR PRN; Protocol PRN Reason: Anxiety Stop: 12/23/16 18:59 Olmesartan (Benicar) 20 mg PO DAILY [facility] Stop: 01/23/17 08:59 Last Admin: 11/27/16 08:22 Dose: Not Given Zolpidem Tartrate (Ambien) 5 mg PO HS PRN PRN Reason: Insomnia Stop: 01/22/17 21:42 General: Alert, Other (Confused) HEENT: Atraumatic Neck: Supple Cardiovascular: Regular rate Lungs: Clear to auscultation Abdomen: Bowel sounds, Soft Neurological: Normal gait Skin: Other (Warm and dry) Psych/Mental Status: Other (Confused) - Procedures Procedures: Procedures Procedure Code Date GROUP PSYCHOTHERAPY 63982 12/28/15 GROUP PSYCHOTHERAPY GZHZZZZ 12/28/15 INDIVID PSYCHOTHERAP NEC 94.39 09/01/09 OTHER GROUP THERAPY 94.44 04/04/15 RECREATIONAL THERAPY 93.81 12/08/09 Assessment/Plan - Problem List Patient Problems: All Active Problems Chronic obstructive pulmonary disease (COPD) (Acute) Hypertension (Acute) I10 Itching (Acute) L29.9 Mental health problem (Acute) F48.9 Mood swings (Acute) F39 - Assessment Assessment: Patient is sleeping but arousable, in no acute distress. - Plan Plan: Will continue with to monitor.
--- NOTE | 2016-11-28 05:30 | Progress Notes ---
SUBJECTIVE: The patient was seen, discussed with staff. Still guarded, irritable, still paranoid, some mood swings, episodes of refusing care, refusing medications, but he took his Haldol Decanoate 2 days ago. The patient has no EPS. His insight is still poor, judgment remains impaired. He is oriented to person and knew he was in some kind of hospital, disoriented to time. ASSESSMENT: The patient still in psychotic phase and he lacks capacity to self care. PLAN: We will continue medication management, continue supportive measures, monitor mood closely. JOB# [id number]
--- NOTE | 2016-11-28 10:20 | General Progress Note ---
Subjective - Review of Systems Service Date: 11/28/16 Subjective: Confused Objective - Physical Exam Vitals and I&O: Vital Signs Temp 97.7 F 11/27/16 21:08 Pulse 55 11/27/16 21:08 Resp 18 11/27/16 21:08 BP 116/59 11/27/16 21:08 Pulse Ox 94 11/27/16 21:08 Intake & Output 11/27/16 11/28/16 11/28/16 18:59 06:59 18:59 Intake Total 920 Balance 920 Intake: Oral 920 Other: # Voids 3 # Bowel Movements 0 Active Medications: Current Medications Acetaminophen (Tylenol) 650 mg PO Q4HR PRN PRN Reason: Pain Or Fever >100.5 Stop: 01/23/17 00:57 Al Hydrox/Mg Hydrox/Simethicone (Maalox) 30 ml PO Q4HR PRN PRN Reason: GI DISTRESS Stop: 01/22/17 21:42 Clonidine HCl (Catapres) 0.1 mg PO Q12H PRN PRN Reason: SBP> 160 OR DBP> 100 Stop: 01/23/17 00:57 Docusate Sodium (Colace) 200 mg PO DAILY [facility] Stop: 01/23/17 08:59 Last Admin: 11/27/16 08:22 Dose: Not Given Haloperidol Decanoate (Haldol Dec) 25 mg IM [id number] [facility] Stop: 01/23/17 07:29 Last Admin: 11/24/16 12:26 Dose: 25 mg Lorazepam (Ativan) 0.5 mg PO Q4HR PRN; Protocol PRN Reason: Anxiety Stop: 12/23/16 18:59 Olmesartan (Benicar) 20 mg PO DAILY [facility] Stop: 01/23/17 08:59 Last Admin: 11/27/16 08:22 Dose: Not Given Zolpidem Tartrate (Ambien) 5 mg PO HS PRN PRN Reason: Insomnia Stop: 01/22/17 21:42 General: Alert, Other (Confused) HEENT: Atraumatic Neck: Supple Cardiovascular: Regular rate Lungs: Clear to auscultation Abdomen: Bowel sounds Extremities: Other (No edema) Neurological: Other (Unstable gait) Skin: Other (Warm and dry) Psych/Mental Status: Other (Confused) - Procedures Procedures: Procedures Procedure Code Date GROUP PSYCHOTHERAPY 46764 12/28/15 GROUP PSYCHOTHERAPY GZHZZZZ 12/28/15 INDIVID PSYCHOTHERAP NEC 94.39 09/01/09 OTHER GROUP THERAPY 94.44 04/04/15 RECREATIONAL THERAPY 93.81 12/08/09 Assessment/Plan - Problem List Patient Problems: All Active Problems Chronic obstructive pulmonary disease (COPD) (Acute) Hypertension (Acute) I10 Itching (Acute) L29.9 Mental health problem (Acute) F48.9 Mood swings (Acute) F39 - Assessment Assessment: Patient is sleeping but arousable, in no acute distress. - Plan Plan: Will continue with to monitor.
--- NOTE | 2016-11-29 02:40 | Progress Notes ---
SUBJECTIVE: The patient was seen. Chart reviewed. Still anxious, guarded, still irritable, and some agitation. His anger outbursts have decreased. The patient received Haldol Decanoate just a couple of days ago and so far has no side effects. His insight is still limited, judgment is still impaired, and he is still forgetful. ASSESSMENT: The patient still in psychotic phase, still highly agitated. PLAN: We will continue hospitalization. JOB# [id number]
--- NOTE | 2016-11-29 09:07 | General Progress Note ---
Subjective - Review of Systems Service Date: 11/29/16 Subjective: Confused Objective - Physical Exam Vitals and I&O: Vital Signs Temp 98 F 11/28/16 20:11 Pulse 78 11/28/16 20:11 Resp 19 11/28/16 20:11 BP 138/63 11/28/16 20:11 Pulse Ox 96 11/28/16 20:11 Intake & Output 11/28/16 11/29/16 11/29/16 18:59 06:59 18:59 Intake Total 720 240 Balance 720 240 Weight (lbs) 62.233 kg Intake: Oral 720 240 Other: # Voids 4 2 # Bowel Movements 1 1 Active Medications: Current Medications Acetaminophen (Tylenol) 650 mg PO Q4HR PRN PRN Reason: Pain Or Fever >100.5 Stop: 01/23/17 00:57 Al Hydrox/Mg Hydrox/Simethicone (Maalox) 30 ml PO Q4HR PRN PRN Reason: GI DISTRESS Stop: 01/22/17 21:42 Clonidine HCl (Catapres) 0.1 mg PO Q12H PRN PRN Reason: SBP> 160 OR DBP> 100 Stop: 01/23/17 00:57 Docusate Sodium (Colace) 200 mg PO DAILY [facility] Stop: 01/23/17 08:59 Last Admin: 11/28/16 13:48 Dose: Not Given Haloperidol Decanoate (Haldol Dec) 25 mg IM [id number] [facility] Stop: 01/23/17 07:29 Last Admin: 11/24/16 12:26 Dose: 25 mg Lorazepam (Ativan) 0.5 mg PO Q4HR PRN; Protocol PRN Reason: Anxiety Stop: 12/23/16 18:59 Olmesartan (Benicar) 20 mg PO DAILY [facility] Stop: 01/23/17 08:59 Last Admin: 11/28/16 13:48 Dose: Not Given Zolpidem Tartrate (Ambien) 5 mg PO HS PRN PRN Reason: Insomnia Stop: 01/22/17 21:42 General: Alert, Other (Confused) HEENT: Atraumatic Neck: Supple Cardiovascular: Regular rate Lungs: Clear to auscultation Abdomen: Bowel sounds, Soft Extremities: Other (No edema) Neurological: Normal gait Skin: Other (Warm and dry) Psych/Mental Status: Other (Confused) - Procedures Procedures: Procedures Procedure Code Date GROUP PSYCHOTHERAPY 57668 12/28/15 GROUP PSYCHOTHERAPY GZHZZZZ 12/28/15 INDIVID PSYCHOTHERAP NEC 94.39 09/01/09 OTHER GROUP THERAPY 94.44 04/04/15 RECREATIONAL THERAPY 93.81 12/08/09 Assessment/Plan - Problem List Patient Problems: All Active Problems Chronic obstructive pulmonary disease (COPD) (Acute) Hypertension (Acute) I10 Itching (Acute) L29.9 Mental health problem (Acute) F48.9 Mood swings (Acute) F39 - Assessment Assessment: Patient is sleeping but arousable, in no acute distress. - Plan Plan: Will continue with to monitor.
--- NOTE | 2016-11-30 06:27 | Progress Notes ---
SUBJECTIVE: The patient was seen, remains paranoid, angry, still irritable, episodes of refusing care; on the other hand, his appetite is fair and sleep is fair. The patient's insight remains poor. ASSESSMENT: The patient continues to be agitated, paranoid, and confused. PLAN: The patient received Haldol Decanoate, awaiting clinical efficacy, consider even high dose. [facility]# [id number]
--- NOTE | 2016-11-30 08:32 | General Progress Note ---
Subjective - Review of Systems Service Date: 11/30/16 Subjective: Confused Objective - Physical Exam Vitals and I&O: Vital Signs Temp 97.4 F 11/30/16 06:04 Pulse 56 11/30/16 06:04 Resp 20 11/30/16 06:04 BP 124/59 11/30/16 06:04 Pulse Ox 98 11/30/16 06:04 Intake & Output 11/29/16 11/30/16 11/30/16 18:59 06:59 18:59 Intake Total 1100 120 Balance 1100 120 Intake: Oral 1100 120 Other: # Voids 3 3 # Bowel Movements 1 0 Active Medications: Current Medications Acetaminophen (Tylenol) 650 mg PO Q4HR PRN PRN Reason: Pain Or Fever >100.5 Stop: 01/23/17 00:57 Al Hydrox/Mg Hydrox/Simethicone (Maalox) 30 ml PO Q4HR PRN PRN Reason: GI DISTRESS Stop: 01/22/17 21:42 Clonidine HCl (Catapres) 0.1 mg PO Q12H PRN PRN Reason: SBP> 160 OR DBP> 100 Stop: 01/23/17 00:57 Docusate Sodium (Colace) 200 mg PO DAILY [facility] Stop: 01/23/17 08:59 Last Admin: 11/29/16 16:32 Dose: Not Given Haloperidol Decanoate (Haldol Dec) 25 mg IM [id number] [facility] Stop: 01/23/17 07:29 Last Admin: 11/24/16 12:26 Dose: 25 mg Lorazepam (Ativan) 0.5 mg PO Q4HR PRN; Protocol PRN Reason: Anxiety Stop: 12/23/16 18:59 Olmesartan (Benicar) 20 mg PO DAILY [facility] Stop: 01/23/17 08:59 Last Admin: 11/29/16 16:32 Dose: Not Given Zolpidem Tartrate (Ambien) 5 mg PO HS PRN PRN Reason: Insomnia Stop: 01/22/17 21:42 General: Alert, Other (confused) HEENT: Atraumatic Neck: Supple Cardiovascular: Regular rate Lungs: Clear to auscultation Abdomen: Bowel sounds Extremities: Other (No edema) Neurological: Normal gait Skin: Other (warm and dry) Psych/Mental Status: Other (Confused) - Procedures Procedures: Procedures Procedure Code Date GROUP PSYCHOTHERAPY 64573 12/28/15 GROUP PSYCHOTHERAPY GZHZZZZ 12/28/15 INDIVID PSYCHOTHERAP NEC 94.39 09/01/09 OTHER GROUP THERAPY 94.44 04/04/15 RECREATIONAL THERAPY 93.81 12/08/09 Assessment/Plan - Problem List Patient Problems: All Active Problems Chronic obstructive pulmonary disease (COPD) (Acute) Hypertension (Acute) I10 Itching (Acute) L29.9 Mental health problem (Acute) F48.9 Mood swings (Acute) F39 - Assessment Assessment: Patient is sleeping but arousable, in no acute distress. He continue refusing meds. - Plan Plan: Will continue with to monitor.
--- NOTE | 2016-12-01 04:51 | Progress Notes ---
SUBJECTIVE: I met with patient, discussed with staff. Less angry, less irritable, but is still refusing care at times, refusing medications. The patient stated he does not mind taking shots. He said he is not scared. The patient's insight is still poor. Judgment remains impaired. ASSESSMENT: The patient is still in psychotic phase. PLAN: We will continue stabilization, continue supportive measure, continue to use Haldol Decanoate. [facility]# [id number]
--- NOTE | 2016-12-01 08:43 | General Progress Note ---
Subjective - Review of Systems Service Date: 12/01/16 Subjective: Confused Objective - Physical Exam Vitals and I&O: Vital Signs Temp 97.3 F 12/01/16 06:41 Pulse 61 12/01/16 06:41 Resp 18 12/01/16 06:41 BP 135/68 12/01/16 06:41 Pulse Ox 95 12/01/16 06:41 Intake & Output 11/30/16 12/01/16 12/01/16 18:59 06:59 18:59 Intake Total 1000 120 Balance 1000 120 Intake: Oral 1000 120 Other: # Voids 3 3 # Bowel Movements 1 Active Medications: Current Medications Acetaminophen (Tylenol) 650 mg PO Q4HR PRN PRN Reason: Pain Or Fever >100.5 Stop: 01/23/17 00:57 Al Hydrox/Mg Hydrox/Simethicone (Maalox) 30 ml PO Q4HR PRN PRN Reason: GI DISTRESS Stop: 01/22/17 21:42 Clonidine HCl (Catapres) 0.1 mg PO Q12H PRN PRN Reason: SBP> 160 OR DBP> 100 Stop: 01/23/17 00:57 Docusate Sodium (Colace) 200 mg PO DAILY [facility] Stop: 01/23/17 08:59 Last Admin: 11/30/16 09:28 Dose: Not Given Haloperidol Decanoate (Haldol Dec) 25 mg IM [id number] [facility] Stop: 01/23/17 07:29 Last Admin: 11/24/16 12:26 Dose: 25 mg Lorazepam (Ativan) 0.5 mg PO Q4HR PRN; Protocol PRN Reason: Anxiety Stop: 12/23/16 18:59 Olmesartan (Benicar) 20 mg PO DAILY [facility] Stop: 01/23/17 08:59 Last Admin: 11/30/16 09:28 Dose: Not Given Zolpidem Tartrate (Ambien) 5 mg PO HS PRN PRN Reason: Insomnia Stop: 01/22/17 21:42 General: Alert, Other (Confused) HEENT: Atraumatic Neck: Supple Cardiovascular: Regular rate Lungs: Clear to auscultation Abdomen: Bowel sounds, Soft Extremities: Other (No edema) Neurological: Normal gait Skin: Other (Warm and dry) Psych/Mental Status: Other (Confused) - Procedures Procedures: Procedures Procedure Code Date GROUP PSYCHOTHERAPY 76909 12/28/15 GROUP PSYCHOTHERAPY GZHZZZZ 12/28/15 INDIVID PSYCHOTHERAP NEC 94.39 09/01/09 OTHER GROUP THERAPY 94.44 04/04/15 RECREATIONAL THERAPY 93.81 12/08/09 Assessment/Plan - Problem List Patient Problems: All Active Problems Chronic obstructive pulmonary disease (COPD) (Acute) Hypertension (Acute) I10 Itching (Acute) L29.9 Mental health problem (Acute) F48.9 Mood swings (Acute) F39 - Assessment Assessment: Patient is sleeping but arousable, in no acute distress. He continue refusing meds. - Plan Plan: Will continue with to monitor.
--- NOTE | 2016-12-02 05:24 | Progress Notes ---
SUBJECTIVE: I met this patient, discussed with staff, chart reviewed. Remains irritable, somewhat angry, but much less compared to time of admission. The patient is compliant with his medication, has no side effects. His insight is limited. The patient is forgetful and confused. ASSESSMENT: The patient is still in psychotic phase. PLAN: We will continue stabilization, continue supportive measures. Some improvement is noted after he received his Haldol Decanoate. I encouraged the patient to comply with treatment. [facility]# [id number]
--- NOTE | 2016-12-02 22:47 | Discharge Summary ---
REASON FOR HOSPITALIZATION: Schizoaffective disorder, psychotic phase, dementia, Alzheimer's type. HISTORY OF PRESENT ILLNESS: The patient is an 86-year-old man who was admitted to the hospital with increased paranoia and agitation, refusing care, refusing medications. The patient was argumentative, agitated, aggressive. The patient was hospitalized HOSPITALIZATION COURSE: Medications implemented. The patient continued to refuses sometimes his p.o. medications; however, he took his Haldol Decanoate and his paranoia slowly improved. His agitation resolved. His appetite improved. His sleep was fair. The patient was discharged back to retirement facility, he was at baseline. Upon discharge, he was oriented to person, not oriented to time. He knew he was in some kind of hospital. The patient did not have any suicidal or homicidal thoughts. The patient was no longer angry or agitated. FINAL DIAGNOSIS: Schizoaffective disorder and dementia, Alzheimer's type, medical history of hypertension and generalized debility. CONDITION ON DISCHARGE: Improved. No agitation or aggressive behavior. DISPOSITION: The patient was discharged back to his retirement facility, expected course of recovery, chronic. JOB# [id number]
--- NOTE | 2016-12-19 20:44 | Discharge Summary ---
CHIEF COMPLAINT: Abdominal pain. HISTORY OF PRESENT ILLNESS: This is the case of an 86-year-old white male, who was transferred from a [facility] secondary to abdominal pain and the patient was not eating well, reason why patient was hospitalized in the med-surg floor. Diagnoses at the moment were bradycardia and UTI. HOSPITAL COURSE AND TREATMENT: This patient was admitted in medical-surgical floor. He was started on IV normal saline, Levaquin, and diet low in sodium. Consult with Cardiology and Nephrology and Psychiatry were done and recommendations were followed. After 3 days in the medical-surgical floor, Psychiatry Dr. Burch [facility]. At the moment of the transfer, the patient was awake, alert, confused, in no acute distress. The patient was transferred on 11/25/2016. DIAGNOSES: At the moment of the transfer were: 1. Urinary tract infection. 2. Bradycardia. 3. Acute renal failure. 4. Dementia. DISPOSITION: The patient was transferred to Psychiatric to continue treatment about the psychosis and dementia. [facility]# [id number]
== END 2016-12-02 20:30 | DRG 885 ==
LOC: GERO 18:16
DX: F25.9 Schizoaffective disorder, unspecified (principal); G30.9 Alzheimer's disease, unspecified; F02.81 Dementia in other diseases classified elsewhere, unspecified severity, with behavioral disturbance; N39.0 Urinary tract infection, site not specified; F32.9 Major depressive disorder, single episode, unspecified; J44.9 Chronic obstructive pulmonary disease, unspecified; I10 Essential (primary) hypertension; L29.9 Pruritus, unspecified; F39 Unspecified mood [affective] disorder; F22 Delusional disorders; Z88.0 Allergy status to penicillin
CPT/HCPCS: 90899; J1631; Z7610

== ENCOUNTER 2017-06-23 14:46 | Inpatient (IN) | payer MEDICARE, MEDICAID ==
--- NOTE | 2017-06-23 15:07 | Diagnostic Imaging Report ---
CHEST X-RAY: AP view INDICATION: Cough COMPARISON: 11/21/2016 FINDINGS: Chronic lung changes are seen with increased bibasilar lung markings. No focal pleural effusions. Heart size normal. Atherosclerosis is noted. Degenerative changes of the spine are noted. There appears to be a left-sided nephroureteral stent. IMPRESSION: Chronic lung changes and bibasal subsegmental atelectasis versus scarring. No focal consolidation identified Atherosclerotic vascular disease.
[2017-06-23 15:23] LABS: % BASOPHILS 0.7 % (0.0-2.0); % EOSINOPHILS 3.5 % (0.0-5.0); % MONOCYTES 7.7 % (2.0-10.0); % NEUTROPHILS 69.1 % (40.0-80.0); HEMATOCRIT 35.2 % (39.0-49.0); HEMOGLOBIN 11.8 gm/dL (12.6-17.4); INR 0.94 (0.5-1.4); MEAN CELL VOLUME 94.7 fl (80-99); MEAN CORPUSCULAR HEMOGLOBIN 31.7 pg (27.0-31.0); MEAN CORPUSCULAR HGB CONC 33.4 pg (28.0-36.0); MEAN PLATELET VOLUME 8.1 fl; NEUTROPHILE ABSOLUTE 3.8 Th/cmm (1.8-8.0); PLATELET COUNT 247 Th/cmm (150-400); PROTHROMBIN TIME (TEST) 9.8 SECONDS (9.5-11.5); RED BLOOD COUNT 3.71 Mil/cmm (3.80-5.80); RED CELL DISTRIBUTION WIDTH 12.7 % (11.5-20.0); WHITE BLOOD COUNT 5.4 Th/cmm (4.8-10.8)
[2017-06-23 15:26] LABS: ALB/GLOB RATIO 1.3 (1.0-1.8); ALKALINE PHOSPHATASE 86 U/L (34-104); ANION GAP 9.8 (7.0-16.0); BILIRUBIN,TOTAL 0.5 mg/dL (0.3-1.0); BUN - UREA NITROGEN 49 mg/dL (7-25); BUN/CREATININE RATIO 27.2; CALCIUM SERUM 9.4 mg/dL (8.6-10.3); CARBON DIOXIDE 24.8 mEq/L (21.0-31.0); CHLORIDE 110 mEq/L (98-107); CREATININE - SERUM 1.8 mg/dL (0.7-1.3); GLUCOSE 96 mg/dL (70-105); POTASSIUM SERUM 4.6 mEq/L (3.5-5.1); SGOT 20 U/L (13-39); SGPT/ALT 15 U/L (7-52); SODIUM SERUM 140 mEq/L (136-145)
[2017-06-23 15:27] LABS: CHOLESTEROL 158 mg/dL (<200); TRIGLYCERIDES 158 mg/dL (<150)
[2017-06-23 15:33] LABS: URINE BILIRUBIN NEGATIVE (NEGATIVE); URINE BLOOD MODERATE (NEGATIVE); URINE GLUCOSE (UA) NEGATIVE (NEGATIVE); URINE KETONE NEGATIVE (NEGATIVE); URINE PH 6.5 (4.6 - 8.0); URINE PROTEIN 30 mg/dL (NEGATIVE); URINE UROBILINOGEN 0.2 E.U./dL (0.2 - 1.0)
[2017-06-23 15:38] LABS: URINE COLOR YELLOW
[2017-06-23 15:44] LABS: URINE BACTERIA MANY /hpf (NONE SEEN); URINE EPITHELIAL CELLS NONE SEEN /lpf (FEW); URINE WBC >100 /hpf (0-5)
--- NOTE | 2017-06-23 15:51 | ED Physician Chart ---
ED Chief Complaint/HPI - Patient Information Date Seen:: 06/23/17 Time Seen:: 14:59 Chief Complaint:: psychosis History of Present Illness:: THIS IS AN 87 YO MALE FROM THE GROUP HOME SENT HERE FOR AN EVALUATION AND PLACEMENT IN [facility]. HE IS CHRONICALLY ILL WITH DEMENTIA, COPD, BRADYCARDIA AND HTN. Allergies:: Allergies Allergy/AdvReac Type Severity Reaction Status Date / Time Penicillins Allergy Verified 11/21/16 14:40 Vitals:: Vital Signs - 8 hr 06/23/17 14:51 Temp 99.5 F HR 56 RR 17 BP 165/78 O2 Sat % 97 Historian:: Patient Review:: Nurse's Note Reviewed ED Review of Systems - Review of Systems General/Constitutional: No fever, No chills, No weight loss, No weakness, No diaphoresis, No edema, No loss of appetite Skin: No skin lesions, No rash, No bruising Head: No headache, No light-headedness Eyes: No loss of vision, No pain, No diplopia ENT: No earache, No nasal drainage, No sore throat, No tinnitus Neck: No neck pain, No swelling, No thyromegaly, No stiffness, No mass noted Cardio Vascular: No chest pain, No palpitations, No PND, No orthopnea, No edema Pulmonary: No SOB, No cough, No sputum, No wheezing GI: No nausea, No vomiting, No diarrhea, No pain, No melena, No hematochezia, No constipation, No hematemesis G/U: No dysuria, No frequency, No hematuria Musculoskeletal: No bone or joint pain, No back pain, No muscle pain Endocrine: No polyuria, No polydipsia Psychiatric: Prior psych history, No depression, No anxiety, No suicidal ideation, No auditory hallucination Hematopoietic: No bruising, No lymphadenopathy Allergic/Immuno: No urticaria, No angioedema Neurological: No syncope, No focal symptoms, No weakness, No paresthesia, No headache, No seizure, No dizziness, No confusion, No vertigo ED Past Medical History - Past Medical History Obtainable: Yes Past Medical History: HTN, CAD, Asthma/COPD, Dementia Family History: None Social History: Non Smoker, No Alcohol, No Drug Use Surgical History: None Psychiatricy History: Schizophrenia, Dementia Medication: Reviewed Family Medical History - Family Member Father History Unknown: Yes Ethnicity: Unknown Living Status: Unknown Hx Family Cancer: No Hx Family Coronary Artery Disease: No Hx Family Congestive Heart Failure: No Hx Family Hypertension: No Hx Family Stroke: No Hx Family Diabetes: No Hx Family Seizures: No Hx Family Dementia: No Hx Family AIDS: No Hx Family HIV: No Hx Family COPD: No Hx Family Hepatitis: No Hx Family Psychiatric Problems: No Hx Family Tuberculosis: No ED Physical Exam - Physical Examination General/Constitutional: Awake, Well-developed, well-nourished, Alert, No distress, GCS 15, Non-toxic appearing, Ambulatory Other Gen/Cons comments:: CONFUSED Head: Atraumatic Eyes: Lids, conjuctiva normal, PERRL, EOMI Skin: Nl inspection, No rash, No skin lesions, No ecchymosis, Well hydrated, No lymphadenopathy ENMT: External ears, nose nl, Nasal exam nl, Lips, teeth, gums nl Neck: Nontender, Full ROM w/o pain, No JVD, No nuchal rigidity, No bruit, No mass, No stridor Respiratory: Nl effort/Exclusion, Clear to Auscultation, No Wheeze/Rhonchi/Rales Cardio Vascular: RRR, No murmur, gallop, rubs, NL S1 S2 GI: No tenderness/rebounding/guarding, No organomegaly, No hernia, Normal BS's, Nondistended, No mass/bruits, No McBurney tenderness : No CVA tenderness Extremities: No tenderness or effusion, Full ROM, normal strength in all extremities, No edema, Normal digits & nails Neuro/Psych: Alert/oriented, DTR's symmetric, Normal sensory exam, Normal motor strength, Normal gait, No focal deficits Other Neuro/Psych comments:: PSYCHOSIS Misc: normal gait, Normal back, No paraspinal tenderness ED Labs/Radiology/EKG Results - Lab Results Results: Laboratory Tests 06/23/17 06/23/17 06/23/17 15:03 15:03 15:03 WBC 5.4 RBC 3.71 L Hgb 11.8 L Hct 35.2 L MCV 94.7 MCH 31.7 H MCHC Differential 33.4 RDW 12.7 Plt Count 247 MPV 8.1 Neutrophils % 69.1 Lymphocytes % 19.0 L Monocytes % 7.7 Eosinophils % 3.5 Basophils % 0.7 PT 9.8 INR 0.94 Sodium Potassium Chloride Carbon Dioxide Anion Gap BUN Creatinine Est GFR ( Amer) Est GFR (Non-Af Amer) BUN/Creatinine Ratio Glucose Calcium Total Bilirubin AST ALT Alkaline Phosphatase Troponin I Total Protein Albumin Globulin Albumin/Globulin Ratio Triglycerides 158 H Cholesterol 158 LDL Cholesterol Direct 107 HDL Cholesterol 41 Urine Color Urine Clarity Urine pH Ur Specific [place] Urine Protein Urine Glucose (UA) Urine Ketones Urine Blood Urine Nitrate Urine Bilirubin Urine Urobilinogen Ur Leukocyte Esterase 06/23/17 06/23/17 06/23/17 15:03 15:03 15:20 WBC RBC Hgb Hct MCV MCH MCHC Differential RDW Plt Count MPV Neutrophils % Lymphocytes % Monocytes % Eosinophils % Basophils % PT INR Sodium 140 Potassium 4.6 Chloride 110 H Carbon Dioxide 24.8 Anion Gap 9.8 BUN 49 H Creatinine 1.8 H Est GFR ( Amer) TNP Est GFR (Non-Af Amer) TNP BUN/Creatinine Ratio 27.2 Glucose 96 Calcium 9.4 Total Bilirubin 0.5 AST 20 ALT 15 Alkaline Phosphatase 86 Troponin I 0.03 Total Protein 7.1 Albumin 4.0 L Globulin 3.1 Albumin/Globulin Ratio 1.3 Triglycerides Cholesterol LDL Cholesterol Direct HDL Cholesterol Urine Color YELLOW Urine Clarity CLOUDY Urine pH 6.5 Ur Specific [place] 1.015 Urine Protein 30 H Urine Glucose (UA) NEGATIVE Urine Ketones NEGATIVE Urine Blood MODERATE H Urine Nitrate POSITIVE H Urine Bilirubin NEGATIVE Urine Urobilinogen 0.2 Ur Leukocyte Esterase LARGE H - Radiology Results Results: CHEST-X-RAY = NAD - EKG Interpretations EKG Time:: 14:55 Rate & Rhythm: RATE= 50 [place]: RIGHT AXIS ED Assessment - Assessment General Assessment: PSYCHOSIS ED Septic Shock - . Is Septic Shock (SBP<90, OR Lactate>4 mmol\L) present?: No - <6hrs of presentation: Vital Signs: Vital Signs - 8 hr 06/23/17 14:51 Temp 99.5 F HR 56 RR 17 BP 165/78 O2 Sat % 97 ED Reassessment (Disposition) - Reassessment Reassessment Condition:: Unchanged - Diagnosis Diagnosis:: PSYCHOSIS URINARY TRACT INFECTION - Patient Disposition Discharge/Transfer:: Acute Care w/in this hosp Admitting Medical Physician:: Geremias Arana Admitting Psych Physician:: Lisandra Burch Condition at Disposition:: Unchanged ED Discharge Plan - Patient Disposition Admit/Discharge/Transfer: Acute Care w/in this hosp Condition at Disposition: Unchanged Instructions: Psychosis
[2017-06-23] MEDS ORDERED: cefTRIAXone 1 GM in Sodium Chloride 0.9% 50 ML IV ONE (15:55)
[2017-06-23 18:15] VITALS: BP 148/71
--- NOTE | 2017-06-24 13:39 | Psychosocial Evaluation ---
DATE OF SERVICE: 06/23/2017 CHIEF COMPLAINT: Psychotic disorder. HISTORY OF PRESENT ILLNESS: The patient is an 87-year-old male with chronic history of schizophrenia and dementia, Alzheimer's type, was transferred from his custodial facility for increased anger outburst, agitation and more episodes of refusing care. The patient chronically refuses medications. The patient is a poor historian and not able to talk much. The patient tends to be isolative ____ left alone. PAST PSYCHIATRIC HISTORY: Multiple hospitalizations, last in November of this year to [facility] for similar presentation. PAST MEDICAL HISTORY: Medically cleared in ER. PSYCHOSOCIAL HISTORY: The patient requires complete care and he resides at [facility]. MENTAL STATUS EXAMINATION: The patient is disheveled, slightly unkempt. He is ____ eye contact. The patient has episodes of talking to himself. He is oriented to person, knew he was in some kind of hospital, did not know name of the hospital, the patient did not know his age. Insight is poor. Judgment is impaired. The patient's strength: The patient is passively accepting treatment. The patient's weakness, lack of insight. ASSESSMENT: Schizophrenia, paranoid type, acute exacerbation, dementia, Alzheimer's type, moderate to advance. PLAN: At this time, we will admit the patient for hospitalization. We will start individual and group therapy and assess psychopharmacological intervention. ESTIMATED LENGTH OF STAY: 7 days. CRITERIA FOR DISCHARGE: Improved condition. No agitation, less irritability and hopefully the patient will be accepting care and safe disposition, outpatient treatment plan. [facility]# [id number]
[2017-06-24] MEDS ORDERED: Maalox 30 mL Cup PO PRN (15:31)
[2017-06-25] MEDS: Levothyroxine 0.05 Mg Tab PO SCH (06:48)
[2017-06-25] MEDS: Sulfamethoxazole/TMP 800/160mg Tab PO SCH ×2 (08:25→09:22)
[2017-06-25] MEDS: Multivitamin w/ Minerals Tab PO SCH (08:26)
--- NOTE | 2017-06-25 13:09 | Progress Notes ---
DATE: 06/25/2017 SUBJECTIVE: The patient was seen, discussed with staff. Still irritable, easily agitated, episodes of talking to himself, some episodes of refusing care. The patient's appetite is still bit on low side and staff monitoring closely. ASSESSMENT: The patient still in psychotic phase. PLAN: Continue stabilization, continue hospitalization and monitor closely. Encourage the patient to comply with treatment. [facility]# [id number]
--- NOTE | 2017-06-25 15:17 | Internal Medicine Prog Note ---
Internal Medicine Subjective - Subjective Patient seen and examined:: with staff, chart reviewed Patient is:: awake, verbal, interactive, kofi chair, agitated, confused Per staff patient has:: no adverse event, no episodes of fall, poor appetite, noncompliant, confused, tolerating meds Internal Medicine Objective - Results Result Diagrams: 06/23/17 15:03 06/23/17 15:03 Recent Labs: Laboratory Last Values WBC 5.4 Th/cmm (4.8-10.8) 06/23/17 15:03 RBC 3.71 Mil/cmm (3.80-5.80) L 06/23/17 15:03 Hgb 11.8 gm/dL (12.6-17.4) L 06/23/17 15:03 Hct 35.2 % (39.0-49.0) L 06/23/17 15:03 MCV 94.7 fl (80-99) 06/23/17 15:03 MCH 31.7 pg (27.0-31.0) H 06/23/17 15:03 MCHC Differential 33.4 pg (28.0-36.0) 06/23/17 15:03 RDW 12.7 % (11.5-20.0) 06/23/17 15:03 Plt Count 247 Th/cmm (150-400) 06/23/17 15:03 MPV 8.1 fl 06/23/17 15:03 Neutrophils % 69.1 % (40.0-80.0) 06/23/17 15:03 Lymphocytes % 19.0 % (20.0-50.0) L 06/23/17 15:03 Monocytes % 7.7 % (2.0-10.0) 06/23/17 15:03 Eosinophils % 3.5 % (0.0-5.0) 06/23/17 15:03 Basophils % 0.7 % (0.0-2.0) 06/23/17 15:03 PT 9.8 SECONDS (9.5-11.5) 06/23/17 15:03 INR 0.94 (0.5-1.4) 06/23/17 15:03 Sodium 140 mEq/L (136-145) 06/23/17 15:03 Potassium 4.6 mEq/L (3.5-5.1) 06/23/17 15:03 Chloride 110 mEq/L (98-107) H 06/23/17 15:03 Carbon Dioxide 24.8 mEq/L (21.0-31.0) 06/23/17 15:03 Anion Gap 9.8 (7.0-16.0) 06/23/17 15:03 BUN 49 mg/dL (7-25) H 06/23/17 15:03 Creatinine 1.8 mg/dL (0.7-1.3) H 06/23/17 15:03 Est GFR ( Amer) TNP 06/23/17 15:03 Est GFR (Non-Af Amer) TNP 06/23/17 15:03 BUN/Creatinine Ratio 27.2 06/23/17 15:03 Glucose 96 mg/dL (70-105) 06/23/17 15:03 Calcium 9.4 mg/dL (8.6-10.3) 06/23/17 15:03 Total Bilirubin 0.5 mg/dL (0.3-1.0) 06/23/17 15:03 AST 20 U/L (13-39) 06/23/17 15:03 ALT 15 U/L (7-52) 06/23/17 15:03 Alkaline Phosphatase 86 U/L (34-104) 06/23/17 15:03 Troponin I 0.03 ng/mL (0.01-0.05) 06/23/17 15:03 Total Protein 7.1 gm/dL (6.0-8.3) 06/23/17 15:03 Albumin 4.0 gm/dL (4.2-5.5) L 06/23/17 15:03 Globulin 3.1 gm/dL 06/23/17 15:03 Albumin/Globulin Ratio 1.3 (1.0-1.8) 06/23/17 15:03 Triglycerides 158 mg/dL (<150) H 06/23/17 15:03 Cholesterol 158 mg/dL (<200) 06/23/17 15:03 LDL Cholesterol Direct 107 mg/dL (75-193) 06/23/17 15:03 HDL Cholesterol 41 mg/dL (23-92) 06/23/17 15:03 TSH 6.35 uIU/ml (0.34-5.60) H 06/23/17 15:03 Urine Source CLEAN C 06/23/17 15:20 Urine Color YELLOW 06/23/17 15:20 Urine Clarity CLOUDY (CLEAR) 06/23/17 15:20 Urine pH 6.5 (4.6 - 8.0) 06/23/17 15:20 Ur Specific [place] 1.015 (1.005-1.030) 06/23/17 15:20 Urine Protein 30 mg/dL (NEGATIVE) H 06/23/17 15:20 Urine Glucose (UA) NEGATIVE mg/dL (NEGATIVE) 06/23/17 15:20 Urine Ketones NEGATIVE mg/dL (NEGATIVE) 06/23/17 15:20 Urine Blood MODERATE (NEGATIVE) H 06/23/17 15:20 Urine Nitrate POSITIVE (NEGATIVE) H 06/23/17 15:20 Urine Bilirubin NEGATIVE (NEGATIVE) 06/23/17 15:20 Urine Urobilinogen 0.2 E.U./dL (0.2 - 1.0) 06/23/17 15:20 Ur Leukocyte Esterase LARGE (NEGATIVE) H 06/23/17 15:20 Urine RBC 10-25 /hpf (0-5) H 06/23/17 15:20 Urine WBC >100 /hpf (0-5) H 06/23/17 15:20 Ur Epithelial Cells NONE SEEN /lpf (FEW) 06/23/17 15:20 Urine Bacteria MANY /hpf (NONE SEEN) 06/23/17 15:20 RPR NONREACTIVE (NONREACTIVE) 06/23/17 15:03 - Physical Exam Vitals and I&O: Vital Signs Temp 98 F 06/25/17 06:42 Pulse 66 06/25/17 08:26 Resp 19 06/25/17 06:42 BP 122/70 06/25/17 08:26 Pulse Ox 97 06/25/17 06:42 Intake & Output 06/24/17 06/25/17 06/25/17 18:59 06:59 18:59 Intake Total 1400 120 Balance 1400 120 Intake: Oral 1400 120 Other: # Voids 3 3 # Bowel Movements 1 Active Medications: Current Medications Acetaminophen (Tylenol) 650 mg PO Q4H PRN PRN Reason: Pain Or Fever above 101 Stop: 08/23/17 15:30 Last Admin: 06/25/17 09:21 Dose: 650 mg Al Hydrox/Mg Hydrox/Simethicone (Maalox) 30 ml PO Q6H PRN PRN Reason: Dyspepsia Stop: 08/23/17 15:30 Aspirin (Ecotrin) 81 mg PO DAILY [facility] Stop: 08/24/17 08:59 Last Admin: 06/25/17 08:26 Dose: Not Given Docusate Sodium (Colace) 200 mg PO DAILY [facility] Stop: 08/23/17 08:59 Last Admin: 06/25/17 08:26 Dose: Not Given Levothyroxine Sodium (Synthroid) 0.05 mg PO QDAC [facility] Stop: 08/24/17 07:29 Last Admin: 06/25/17 06:48 Dose: 0.05 mg Losartan Potassium (Cozaar) 25 mg PO DAILY [facility] Stop: 08/23/17 15:44 Last Admin: 06/25/17 08:26 Dose: Not Given Olanzapine (Zyprexa) 2.5 mg PO HS [facility] PRN Reason: Protocol Stop: 08/22/17 20:59 Last Admin: 06/24/17 20:45 Dose: Not Given Trimethoprim/Sulfamethoxazole (Bactrim Ds) 1 tab PO DAILY [facility] Stop: 08/24/17 08:59 Last Admin: 06/25/17 09:22 Dose: 1 tab General: demented, disheveled, appears older HEENT: NC/AT, PERRLA, thinning hair, poor dentition Neck: Supple, No JVD, No LAD Lungs: CTAB Cardiovascular: RRR, Normal S1, Normal S2, with murmur Abdomen: soft, non-tender, globular, positive bowel sound Extremities: excoriation, deformity, atrophy Neurological: no change, disorganized, unable to follow command - Procedures Procedures: Procedures Procedure Code Date GROUP PSYCHOTHERAPY 70430 12/28/15 GROUP PSYCHOTHERAPY GZHZZZZ 12/28/15 INDIVID PSYCHOTHERAP NEC 94.39 09/01/09 OTHER GROUP THERAPY 94.44 04/04/15 RECREATIONAL THERAPY 93.81 12/08/09 Internal Medicine Assmt/Plan - Assessment Assessment: uti htn parkinson dementia anemia ri general debility agitation - Plan Plan: cont on po antibiotic will follow up urine c and s fall precaution nutritional support fall and aspiration precaution taras rubin
--- NOTE | 2017-06-26 02:03 | History & Physical ---
ADMIT DATE: 06/23/2017 CHIEF COMPLAINT: Increasing agitation. HISTORY OF PRESENT ILLNESS: This is an 87-year-old male with history of hypertension, COPD, hypothyroidism and previous urinary tract infection, was admitted under the service of Dr. Licea. The patient denies any fever or chills. The patient is confused, unable to provide meaningful history. PAST MEDICAL HISTORY: As mentioned in history of present illness. PAST SURGICAL HISTORY: Unable to obtain from the patient. ALLERGIES: PENICILLIN. MEDICATIONS: The patient is on Cogentin, olanzapine, Benicar and Colace. FAMILY HISTORY: Noncontributory. SOCIAL HISTORY: The patient [place] The patient requiring 24-hour total care. REVIEW OF SYSTEMS: This is limited secondary to the patient's current mental state. We will try to obtain more detailed review of system at a later date by talking to the family members, none was given by the patient, we will try to get information from nursing staff at [facility], as well as from ____, who is following the patient previously. PHYSICAL EXAMINATION: VITAL SIGNS: Blood pressure 167/71, respirations 18, pulse 58, temperature 97.8. GENERAL: Elderly male who appears his stated age, cachectic. NECK: Supple. No mass. LUNGS: Equal breath sounds, with a few rhonchi. HEART: Sinus tachycardia with systolic ejection murmur. ABDOMEN: Soft and nontender. EXTREMITIES: No clubbing, cyanosis or edema. NEUROLOGIC: Limited. LABORATORY DATA: WBC 5.4, hemoglobin 11, platelets 247. Sodium 140, potassium 4.3, BUN 49, creatinine 1.8. ____ 4.0. TSH 2.3. UA greater than 100 wbc's, many bacteria. ASSESSMENT AND PLAN: 1. Urinary tract infection, previous MRSA. 2. Hypothyroidism. 3. Hyponatremia. 4. Renal insufficiency. 5. Anemia. 6. Protein-calorie malnutrition. 7. Moderate chronic obstructive pulmonary disease. 8. Generalized weakness. 9. Hypertension. 10. Bradycardia. We will follow the patient. We will monitor the patient's renal function. We will make adjustment based on creatinine. Continue on ____ support. We will start the patient on Synthroid. We will continue to monitor the patient closely. We will monitor ____. We will compare with Psychiatry. JOB# [id number]
[2017-06-26] MEDS: Levothyroxine 0.05 Mg Tab PO SCH (06:57)
--- NOTE | 2017-06-26 11:20 | Internal Medicine Prog Note ---
Internal Medicine Subjective - Subjective Service Date: 06/26/17 Patient is:: awake, verbal, interactive, kofi chair, agitated, confused Per staff patient has:: no adverse event, no episodes of fall, poor appetite, noncompliant, confused, tolerating meds Internal Medicine Objective - Results Result Diagrams: 06/23/17 15:03 06/23/17 15:03 Recent Labs: Laboratory Last Values WBC 5.4 Th/cmm (4.8-10.8) 06/23/17 15:03 RBC 3.71 Mil/cmm (3.80-5.80) L 06/23/17 15:03 Hgb 11.8 gm/dL (12.6-17.4) L 06/23/17 15:03 Hct 35.2 % (39.0-49.0) L 06/23/17 15:03 MCV 94.7 fl (80-99) 06/23/17 15:03 MCH 31.7 pg (27.0-31.0) H 06/23/17 15:03 MCHC Differential 33.4 pg (28.0-36.0) 06/23/17 15:03 RDW 12.7 % (11.5-20.0) 06/23/17 15:03 Plt Count 247 Th/cmm (150-400) 06/23/17 15:03 MPV 8.1 fl 06/23/17 15:03 Neutrophils % 69.1 % (40.0-80.0) 06/23/17 15:03 Lymphocytes % 19.0 % (20.0-50.0) L 06/23/17 15:03 Monocytes % 7.7 % (2.0-10.0) 06/23/17 15:03 Eosinophils % 3.5 % (0.0-5.0) 06/23/17 15:03 Basophils % 0.7 % (0.0-2.0) 06/23/17 15:03 PT 9.8 SECONDS (9.5-11.5) 06/23/17 15:03 INR 0.94 (0.5-1.4) 06/23/17 15:03 Sodium 140 mEq/L (136-145) 06/23/17 15:03 Potassium 4.6 mEq/L (3.5-5.1) 06/23/17 15:03 Chloride 110 mEq/L (98-107) H 06/23/17 15:03 Carbon Dioxide 24.8 mEq/L (21.0-31.0) 06/23/17 15:03 Anion Gap 9.8 (7.0-16.0) 06/23/17 15:03 BUN 49 mg/dL (7-25) H 06/23/17 15:03 Creatinine 1.8 mg/dL (0.7-1.3) H 06/23/17 15:03 Est GFR ( Amer) TNP 06/23/17 15:03 Est GFR (Non-Af Amer) TNP 06/23/17 15:03 BUN/Creatinine Ratio 27.2 06/23/17 15:03 Glucose 96 mg/dL (70-105) 06/23/17 15:03 Calcium 9.4 mg/dL (8.6-10.3) 06/23/17 15:03 Total Bilirubin 0.5 mg/dL (0.3-1.0) 06/23/17 15:03 AST 20 U/L (13-39) 06/23/17 15:03 ALT 15 U/L (7-52) 06/23/17 15:03 Alkaline Phosphatase 86 U/L (34-104) 06/23/17 15:03 Troponin I 0.03 ng/mL (0.01-0.05) 06/23/17 15:03 Total Protein 7.1 gm/dL (6.0-8.3) 06/23/17 15:03 Albumin 4.0 gm/dL (4.2-5.5) L 06/23/17 15:03 Globulin 3.1 gm/dL 06/23/17 15:03 Albumin/Globulin Ratio 1.3 (1.0-1.8) 06/23/17 15:03 Triglycerides 158 mg/dL (<150) H 06/23/17 15:03 Cholesterol 158 mg/dL (<200) 06/23/17 15:03 LDL Cholesterol Direct 107 mg/dL (75-193) 06/23/17 15:03 HDL Cholesterol 41 mg/dL (23-92) 06/23/17 15:03 TSH 6.35 uIU/ml (0.34-5.60) H 06/23/17 15:03 Urine Source CLEAN C 06/23/17 15:20 Urine Color YELLOW 06/23/17 15:20 Urine Clarity CLOUDY (CLEAR) 06/23/17 15:20 Urine pH 6.5 (4.6 - 8.0) 06/23/17 15:20 Ur Specific [place] 1.015 (1.005-1.030) 06/23/17 15:20 Urine Protein 30 mg/dL (NEGATIVE) H 06/23/17 15:20 Urine Glucose (UA) NEGATIVE mg/dL (NEGATIVE) 06/23/17 15:20 Urine Ketones NEGATIVE mg/dL (NEGATIVE) 06/23/17 15:20 Urine Blood MODERATE (NEGATIVE) H 06/23/17 15:20 Urine Nitrate POSITIVE (NEGATIVE) H 06/23/17 15:20 Urine Bilirubin NEGATIVE (NEGATIVE) 06/23/17 15:20 Urine Urobilinogen 0.2 E.U./dL (0.2 - 1.0) 06/23/17 15:20 Ur Leukocyte Esterase LARGE (NEGATIVE) H 06/23/17 15:20 Urine RBC 10-25 /hpf (0-5) H 06/23/17 15:20 Urine WBC >100 /hpf (0-5) H 06/23/17 15:20 Ur Epithelial Cells NONE SEEN /lpf (FEW) 06/23/17 15:20 Urine Bacteria MANY /hpf (NONE SEEN) 06/23/17 15:20 RPR NONREACTIVE (NONREACTIVE) 06/23/17 15:03 - Physical Exam Vitals and I&O: Vital Signs Temp 97.9 F 06/26/17 06:24 Pulse 56 06/26/17 06:24 Resp 19 06/26/17 06:24 BP 106/59 06/26/17 06:24 Pulse Ox 96 06/26/17 06:24 Intake & Output 06/25/17 06/26/17 06/26/17 18:59 06:59 18:59 Intake Total 800 Balance 800 Weight (lbs) 131 lb Intake: Oral 800 Other: # Voids 2 3 # Bowel Movements 1 0 Active Medications: Current Medications Acetaminophen (Tylenol) 650 mg PO Q4H PRN PRN Reason: Pain Or Fever above 101 Stop: 08/23/17 15:30 Last Admin: 09/11/17 09:21 Dose: 650 mg Al Hydrox/Mg Hydrox/Simethicone (Maalox) 30 ml PO Q6H PRN PRN Reason: Dyspepsia Stop: 08/23/17 15:30 Aspirin (Ecotrin) 81 mg PO DAILY [facility] Stop: 08/24/17 08:59 Last Admin: 06/25/17 08:26 Dose: Not Given Docusate Sodium (Colace) 200 mg PO DAILY [facility] Stop: 08/23/17 08:59 Last Admin: 06/25/17 08:26 Dose: Not Given Levothyroxine Sodium (Synthroid) 0.05 mg PO QDAC [facility] Stop: 08/24/17 07:29 Last Admin: 06/26/17 06:57 Dose: Not Given Losartan Potassium (Cozaar) 25 mg PO DAILY [facility] Stop: 08/23/17 15:44 Last Admin: 06/25/17 08:26 Dose: Not Given Olanzapine (Zyprexa) 2.5 mg PO HS [facility] PRN Reason: Protocol Stop: 08/22/17 20:59 Last Admin: 06/25/17 20:50 Dose: Not Given Trimethoprim/Sulfamethoxazole (Bactrim Ds) 1 tab PO DAILY [facility] Stop: 08/24/17 08:59 Last Admin: 06/25/17 09:22 Dose: 1 tab General: demented, disheveled, appears older HEENT: NC/AT, PERRLA, thinning hair, poor dentition Neck: Supple, No JVD, No LAD Lungs: CTAB Cardiovascular: RRR, Normal S1, Normal S2, with murmur Abdomen: soft, non-tender, globular, positive bowel sound Extremities: excoriation, deformity, atrophy Neurological: no change, disorganized, unable to follow command - Procedures Procedures: Procedures Procedure Code Date GROUP PSYCHOTHERAPY 60894 12/28/15 GROUP PSYCHOTHERAPY GZHZZZZ 12/28/15 INDIVID PSYCHOTHERAP NEC 94.39 09/01/09 OTHER GROUP THERAPY 94.44 04/04/15 RECREATIONAL THERAPY 93.81 12/08/09 Internal Medicine Assmt/Plan - Assessment Assessment: uti htn parkinson dementia anemia ri general debility agitation - Plan Plan: monitor bp fall precautions continue current medications psych f/u
[2017-06-26] MEDS: Multivitamin w/ Minerals Tab PO SCH (13:48)
[2017-06-26] MEDS: Sulfamethoxazole/TMP 800/160mg Tab PO SCH (13:48)
--- NOTE | 2017-06-27 00:38 | Progress Notes ---
DATE: 06/26/2017 SUBJECTIVE: Staff was spoken to. The patient is interviewed. Mood is irritable. Affect is constricted. Insight and judgment are very much impaired. Impulse control seems to be limited. The patient is refusing to comply with the medications. The patient is stating there is no reason for him to be on any medications. The patient is currently on olanzapine 2.5 mg and is refusing to comply. ASSESSMENT: The patient is still psychotic. PLAN: To continue the patient with the supportive therapy. I encouraged the patient to verbalize the concerns rather than to act out. JOB# [id number]
[2017-06-27] MEDS: Levothyroxine 0.05 Mg Tab PO SCH (06:31)
[2017-06-27] MEDS: Multivitamin w/ Minerals Tab PO SCH (09:14)
[2017-06-27] MEDS: Sulfamethoxazole/TMP 800/160mg Tab PO SCH (09:14)
--- NOTE | 2017-06-27 11:31 | Internal Medicine Prog Note ---
Internal Medicine Subjective - Subjective Service Date: 06/27/17 Patient is:: awake, verbal, interactive, kofi chair, agitated, confused Per staff patient has:: no adverse event, no episodes of fall, poor appetite, noncompliant, confused, tolerating meds Internal Medicine Objective - Results Result Diagrams: 06/23/17 15:03 06/23/17 15:03 Recent Labs: Laboratory Last Values WBC 5.4 Th/cmm (4.8-10.8) 06/23/17 15:03 RBC 3.71 Mil/cmm (3.80-5.80) L 06/23/17 15:03 Hgb 11.8 gm/dL (12.6-17.4) L 06/23/17 15:03 Hct 35.2 % (39.0-49.0) L 06/23/17 15:03 MCV 94.7 fl (80-99) 06/23/17 15:03 MCH 31.7 pg (27.0-31.0) H 06/23/17 15:03 MCHC Differential 33.4 pg (28.0-36.0) 06/23/17 15:03 RDW 12.7 % (11.5-20.0) 06/23/17 15:03 Plt Count 247 Th/cmm (150-400) 06/23/17 15:03 MPV 8.1 fl 06/23/17 15:03 Neutrophils % 69.1 % (40.0-80.0) 06/23/17 15:03 Lymphocytes % 19.0 % (20.0-50.0) L 06/23/17 15:03 Monocytes % 7.7 % (2.0-10.0) 06/23/17 15:03 Eosinophils % 3.5 % (0.0-5.0) 06/23/17 15:03 Basophils % 0.7 % (0.0-2.0) 06/23/17 15:03 PT 9.8 SECONDS (9.5-11.5) 06/23/17 15:03 INR 0.94 (0.5-1.4) 06/23/17 15:03 Sodium 140 mEq/L (136-145) 06/23/17 15:03 Potassium 4.6 mEq/L (3.5-5.1) 06/23/17 15:03 Chloride 110 mEq/L (98-107) H 06/23/17 15:03 Carbon Dioxide 24.8 mEq/L (21.0-31.0) 06/23/17 15:03 Anion Gap 9.8 (7.0-16.0) 06/23/17 15:03 BUN 49 mg/dL (7-25) H 06/23/17 15:03 Creatinine 1.8 mg/dL (0.7-1.3) H 06/23/17 15:03 Est GFR ( Amer) TNP 06/23/17 15:03 Est GFR (Non-Af Amer) TNP 06/23/17 15:03 BUN/Creatinine Ratio 27.2 06/23/17 15:03 Glucose 96 mg/dL (70-105) 06/23/17 15:03 Calcium 9.4 mg/dL (8.6-10.3) 06/23/17 15:03 Total Bilirubin 0.5 mg/dL (0.3-1.0) 06/23/17 15:03 AST 20 U/L (13-39) 06/23/17 15:03 ALT 15 U/L (7-52) 06/23/17 15:03 Alkaline Phosphatase 86 U/L (34-104) 06/23/17 15:03 Troponin I 0.03 ng/mL (0.01-0.05) 06/23/17 15:03 Total Protein 7.1 gm/dL (6.0-8.3) 06/23/17 15:03 Albumin 4.0 gm/dL (4.2-5.5) L 06/23/17 15:03 Globulin 3.1 gm/dL 06/23/17 15:03 Albumin/Globulin Ratio 1.3 (1.0-1.8) 06/23/17 15:03 Triglycerides 158 mg/dL (<150) H 06/23/17 15:03 Cholesterol 158 mg/dL (<200) 06/23/17 15:03 LDL Cholesterol Direct 107 mg/dL (75-193) 06/23/17 15:03 HDL Cholesterol 41 mg/dL (23-92) 06/23/17 15:03 TSH 6.35 uIU/ml (0.34-5.60) H 06/23/17 15:03 Urine Source CLEAN C 06/23/17 15:20 Urine Color YELLOW 06/23/17 15:20 Urine Clarity CLOUDY (CLEAR) 06/23/17 15:20 Urine pH 6.5 (4.6 - 8.0) 06/23/17 15:20 Ur Specific [place] 1.015 (1.005-1.030) 06/23/17 15:20 Urine Protein 30 mg/dL (NEGATIVE) H 06/23/17 15:20 Urine Glucose (UA) NEGATIVE mg/dL (NEGATIVE) 06/23/17 15:20 Urine Ketones NEGATIVE mg/dL (NEGATIVE) 06/23/17 15:20 Urine Blood MODERATE (NEGATIVE) H 06/23/17 15:20 Urine Nitrate POSITIVE (NEGATIVE) H 06/23/17 15:20 Urine Bilirubin NEGATIVE (NEGATIVE) 06/23/17 15:20 Urine Urobilinogen 0.2 E.U./dL (0.2 - 1.0) 06/23/17 15:20 Ur Leukocyte Esterase LARGE (NEGATIVE) H 06/23/17 15:20 Urine RBC 10-25 /hpf (0-5) H 06/23/17 15:20 Urine WBC >100 /hpf (0-5) H 06/23/17 15:20 Ur Epithelial Cells NONE SEEN /lpf (FEW) 06/23/17 15:20 Urine Bacteria MANY /hpf (NONE SEEN) 06/23/17 15:20 RPR NONREACTIVE (NONREACTIVE) 06/23/17 15:03 - Physical Exam Vitals and I&O: Vital Signs Temp 98.3 F 06/26/17 20:29 Pulse 51 06/26/17 20:29 Resp 18 06/26/17 20:29 BP 102/65 06/26/17 20:29 Pulse Ox 96 06/26/17 20:29 Intake & Output 06/26/17 06/27/17 06/27/17 18:59 06:59 18:59 Intake Total 800 460 Balance 800 460 Intake: Oral 800 460 Other: # Voids 4 2 # Bowel Movements 1 0 Active Medications: Current Medications Acetaminophen (Tylenol) 650 mg PO Q4H PRN PRN Reason: Pain Or Fever above 101 Stop: 08/23/17 15:30 Last Admin: 06/26/17 09:21 Dose: 650 mg Al Hydrox/Mg Hydrox/Simethicone (Maalox) 30 ml PO Q6H PRN PRN Reason: Dyspepsia Stop: 08/23/17 15:30 Aspirin (Ecotrin) 81 mg PO DAILY [facility] Stop: 08/24/17 08:59 Last Admin: 06/27/17 09:14 Dose: Not Given Docusate Sodium (Colace) 200 mg PO DAILY [facility] Stop: 08/23/17 08:59 Last Admin: 06/27/17 09:14 Dose: Not Given Levothyroxine Sodium (Synthroid) 0.05 mg PO QDAC [facility] Stop: 08/24/17 07:29 Last Admin: 06/27/17 06:31 Dose: Not Given Losartan Potassium (Cozaar) 25 mg PO DAILY [facility] Stop: 08/23/17 15:44 Last Admin: 06/27/17 09:14 Dose: Not Given Olanzapine (Zyprexa) 2.5 mg PO HS [facility] PRN Reason: Protocol Stop: 08/22/17 20:59 Last Admin: 06/26/17 20:55 Dose: Not Given Trimethoprim/Sulfamethoxazole (Bactrim Ds) 1 tab PO DAILY [facility] Stop: 08/24/17 08:59 Last Admin: 06/27/17 09:14 Dose: Not Given General: demented, disheveled, appears older HEENT: NC/AT, PERRLA, thinning hair, poor dentition Neck: Supple, No JVD, No LAD Lungs: CTAB Cardiovascular: RRR, Normal S1, Normal S2, with murmur Abdomen: soft, non-tender, globular, positive bowel sound Extremities: excoriation, deformity, atrophy Neurological: no change, disorganized, unable to follow command - Procedures Procedures: Procedures Procedure Code Date GROUP PSYCHOTHERAPY 39103 12/28/15 GROUP PSYCHOTHERAPY GZHZZZZ 12/28/15 INDIVID PSYCHOTHERAP NEC 94.39 09/01/09 OTHER GROUP THERAPY 94.44 04/04/15 RECREATIONAL THERAPY 93.81 12/08/09 Internal Medicine Assmt/Plan - Assessment Assessment: uti htn parkinson dementia anemia ri general debility agitation - Plan Plan: monitor bp fall precautions continue current medications psych f/u
[2017-06-27] MEDS ORDERED: Probiotic Screen MC PRN (16:45)
--- NOTE | 2017-06-28 03:04 | Progress Notes ---
DATE: 06/27/2017 Staff was spoken to. The patient is interviewed. Mood is noted to be irritable. Affect is constricted. The patient has been screaming and yelling, cursing the staff out. Insight and judgment at this time are noted to be very much impaired. Impulse control is noted to be poor. The patient has been placed on olanzapine, but patient has been reluctant to take the medication. The patient has been cursing the staff out if anyone is coming to close to him and in view of this, it is decided to start the patient on Haldol on b.i.d. p.r.n. basis for his acute agitation in case, if the patient is refusing to comply with the medication and patient is going to be given the injection. The patient at this time is not ready to be discharged to a lower level of care in view of his acute agitation and psychosis. JOB# [id number]
[2017-06-28] MEDS: Levothyroxine 0.05 Mg Tab PO SCH (06:30)
--- NOTE | 2017-06-28 10:37 | Internal Medicine Prog Note ---
Internal Medicine Subjective - Subjective Service Date: 06/28/17 Patient is:: awake, verbal, interactive, kofi chair, agitated, confused Per staff patient has:: no adverse event, no episodes of fall, poor appetite, noncompliant, confused, tolerating meds Internal Medicine Objective - Results Result Diagrams: 06/23/17 15:03 06/23/17 15:03 Recent Labs: Laboratory Last Values WBC 5.4 Th/cmm (4.8-10.8) 06/23/17 15:03 RBC 3.71 Mil/cmm (3.80-5.80) L 06/23/17 15:03 Hgb 11.8 gm/dL (12.6-17.4) L 06/23/17 15:03 Hct 35.2 % (39.0-49.0) L 06/23/17 15:03 MCV 94.7 fl (80-99) 06/23/17 15:03 MCH 31.7 pg (27.0-31.0) H 06/23/17 15:03 MCHC Differential 33.4 pg (28.0-36.0) 06/23/17 15:03 RDW 12.7 % (11.5-20.0) 06/23/17 15:03 Plt Count 247 Th/cmm (150-400) 06/23/17 15:03 MPV 8.1 fl 06/23/17 15:03 Neutrophils % 69.1 % (40.0-80.0) 06/23/17 15:03 Lymphocytes % 19.0 % (20.0-50.0) L 06/23/17 15:03 Monocytes % 7.7 % (2.0-10.0) 06/23/17 15:03 Eosinophils % 3.5 % (0.0-5.0) 06/23/17 15:03 Basophils % 0.7 % (0.0-2.0) 06/23/17 15:03 PT 9.8 SECONDS (9.5-11.5) 06/23/17 15:03 INR 0.94 (0.5-1.4) 06/23/17 15:03 Sodium 140 mEq/L (136-145) 06/23/17 15:03 Potassium 4.6 mEq/L (3.5-5.1) 06/23/17 15:03 Chloride 110 mEq/L (98-107) H 06/23/17 15:03 Carbon Dioxide 24.8 mEq/L (21.0-31.0) 06/23/17 15:03 Anion Gap 9.8 (7.0-16.0) 06/23/17 15:03 BUN 49 mg/dL (7-25) H 06/23/17 15:03 Creatinine 1.8 mg/dL (0.7-1.3) H 06/23/17 15:03 Est GFR ( Amer) TNP 06/23/17 15:03 Est GFR (Non-Af Amer) TNP 06/23/17 15:03 BUN/Creatinine Ratio 27.2 06/23/17 15:03 Glucose 96 mg/dL (70-105) 06/23/17 15:03 Calcium 9.4 mg/dL (8.6-10.3) 06/23/17 15:03 Total Bilirubin 0.5 mg/dL (0.3-1.0) 06/23/17 15:03 AST 20 U/L (13-39) 06/23/17 15:03 ALT 15 U/L (7-52) 06/23/17 15:03 Alkaline Phosphatase 86 U/L (34-104) 06/23/17 15:03 Troponin I 0.03 ng/mL (0.01-0.05) 06/23/17 15:03 Total Protein 7.1 gm/dL (6.0-8.3) 06/23/17 15:03 Albumin 4.0 gm/dL (4.2-5.5) L 06/23/17 15:03 Globulin 3.1 gm/dL 06/23/17 15:03 Albumin/Globulin Ratio 1.3 (1.0-1.8) 06/23/17 15:03 Triglycerides 158 mg/dL (<150) H 06/23/17 15:03 Cholesterol 158 mg/dL (<200) 06/23/17 15:03 LDL Cholesterol Direct 107 mg/dL (75-193) 06/23/17 15:03 HDL Cholesterol 41 mg/dL (23-92) 06/23/17 15:03 TSH 6.35 uIU/ml (0.34-5.60) H 06/23/17 15:03 Urine Source CLEAN C 06/23/17 15:20 Urine Color YELLOW 06/23/17 15:20 Urine Clarity CLOUDY (CLEAR) 06/23/17 15:20 Urine pH 6.5 (4.6 - 8.0) 06/23/17 15:20 Ur Specific Home 1.015 (1.005-1.030) 06/23/17 15:20 Urine Protein 30 mg/dL (NEGATIVE) H 06/23/17 15:20 Urine Glucose (UA) NEGATIVE mg/dL (NEGATIVE) 06/23/17 15:20 Urine Ketones NEGATIVE mg/dL (NEGATIVE) 06/23/17 15:20 Urine Blood MODERATE (NEGATIVE) H 06/23/17 15:20 Urine Nitrate POSITIVE (NEGATIVE) H 06/23/17 15:20 Urine Bilirubin NEGATIVE (NEGATIVE) 06/23/17 15:20 Urine Urobilinogen 0.2 E.U./dL (0.2 - 1.0) 06/23/17 15:20 Ur Leukocyte Esterase LARGE (NEGATIVE) H 06/23/17 15:20 Urine RBC 10-25 /hpf (0-5) H 06/23/17 15:20 Urine WBC >100 /hpf (0-5) H 06/23/17 15:20 Ur Epithelial Cells NONE SEEN /lpf (FEW) 06/23/17 15:20 Urine Bacteria MANY /hpf (NONE SEEN) 06/23/17 15:20 RPR NONREACTIVE (NONREACTIVE) 06/23/17 15:03 - Physical Exam Vitals and I&O: Vital Signs Temp 97.8 F 06/28/17 06:21 Pulse 62 06/28/17 06:21 Resp 20 06/28/17 06:21 BP 109/56 06/28/17 06:21 Pulse Ox 93 06/28/17 06:21 Intake & Output 06/27/17 06/28/17 06/28/17 18:59 06:59 18:59 Intake Total 900 240 Balance 900 240 Weight (lbs) 131 lb Intake: Oral 900 240 Other: # Voids 4 3 # Bowel Movements 1 0 Active Medications: Current Medications Acetaminophen (Tylenol) 650 mg PO Q4H PRN PRN Reason: Pain Or Fever above 101 Stop: 08/23/17 15:30 Last Admin: 06/26/17 09:21 Dose: 650 mg Al Hydrox/Mg Hydrox/Simethicone (Maalox) 30 ml PO Q6H PRN PRN Reason: Dyspepsia Stop: 08/23/17 15:30 Aspirin (Ecotrin) 81 mg PO DAILY ADAN Stop: 08/24/17 08:59 Last Admin: 06/27/17 09:14 Dose: Not Given Docusate Sodium (Colace) 200 mg PO DAILY ADAN Stop: 08/23/17 08:59 Last Admin: 06/27/17 09:14 Dose: Not Given Haloperidol (Haldol) 1 mg PO BID PRN; Protocol PRN Reason: Agitation Stop: 08/27/17 08:59 Lactobacillus Rhamnosus (Culturelle) 1 each PO DAILY ADAN Stop: 08/27/17 08:59 Levothyroxine Sodium (Synthroid) 0.05 mg PO QDAC ADAN Stop: 08/24/17 07:29 Last Admin: 06/28/17 06:30 Dose: Not Given Losartan Potassium (Cozaar) 25 mg PO DAILY ADAN Stop: 08/23/17 15:44 Last Admin: 06/27/17 09:14 Dose: Not Given Miscellaneous (Probiotic Screen) 1 ea MC PRN PRN PRN Reason: PROTOCOL Stop: 08/26/17 16:44 Olanzapine (Zyprexa) 2.5 mg PO HS ADAN PRN Reason: Protocol Stop: 08/22/17 20:59 Last Admin: 06/27/17 20:22 Dose: Not Given Trimethoprim/Sulfamethoxazole (Bactrim Ds) 1 tab PO DAILY ADAN Stop: 08/24/17 08:59 Last Admin: 06/27/17 09:14 Dose: Not Given General: demented, disheveled, appears older HEENT: NC/AT, PERRLA, thinning hair, poor dentition Neck: Supple, No JVD, No LAD Lungs: CTAB Cardiovascular: RRR, Normal S1, Normal S2, with murmur Abdomen: soft, non-tender, globular, positive bowel sound Extremities: excoriation, deformity, atrophy Neurological: no change, disorganized, unable to follow command - Procedures Procedures: Procedures Procedure Code Date GROUP PSYCHOTHERAPY 36262 12/28/15 GROUP PSYCHOTHERAPY GZHZZZZ 12/28/15 INDIVID PSYCHOTHERAP NEC 94.39 11/17/09 OTHER GROUP THERAPY 94.44 04/04/15 RECREATIONAL THERAPY 93.81 12/08/09 Internal Medicine Assmt/Plan - Assessment Assessment: uti htn parkinson dementia anemia ri general debility agitation - Plan Plan: monitor bp fall precautions continue current medications psych f/u
[2017-06-28] MEDS: Lactobacillus Rhamnosus 10 Billion CFU Capsule PO SCH (10:59)
[2017-06-28] MEDS: Sulfamethoxazole/TMP 800/160mg Tab PO SCH (11:00)
[2017-06-28] MEDS: Multivitamin w/ Minerals Tab PO SCH (11:00)
[2017-06-29] MEDS: Levothyroxine 0.05 Mg Tab PO SCH (06:57)
[2017-06-29] MEDS: Lactobacillus Rhamnosus 10 Billion CFU Capsule PO SCH (10:07)
[2017-06-29] MEDS: Multivitamin w/ Minerals Tab PO SCH (10:09)
[2017-06-29] MEDS: Sulfamethoxazole/TMP 800/160mg Tab PO SCH (10:09)
--- NOTE | 2017-06-29 11:29 | Internal Medicine Prog Note ---
Internal Medicine Subjective - Subjective Service Date: 06/29/17 Patient is:: awake, verbal, interactive, kofi chair, agitated, confused Per staff patient has:: no adverse event, no episodes of fall, poor appetite, noncompliant, confused, tolerating meds Internal Medicine Objective - Results Result Diagrams: 06/23/17 15:03 06/23/17 15:03 Recent Labs: Laboratory Last Values WBC 5.4 Th/cmm (4.8-10.8) 06/23/17 15:03 RBC 3.71 Mil/cmm (3.80-5.80) L 06/23/17 15:03 Hgb 11.8 gm/dL (12.6-17.4) L 06/23/17 15:03 Hct 35.2 % (39.0-49.0) L 06/23/17 15:03 MCV 94.7 fl (80-99) 06/23/17 15:03 MCH 31.7 pg (27.0-31.0) H 06/23/17 15:03 MCHC Differential 33.4 pg (28.0-36.0) 06/23/17 15:03 RDW 12.7 % (11.5-20.0) 06/23/17 15:03 Plt Count 247 Th/cmm (150-400) 06/23/17 15:03 MPV 8.1 fl 06/23/17 15:03 Neutrophils % 69.1 % (40.0-80.0) 06/23/17 15:03 Lymphocytes % 19.0 % (20.0-50.0) L 06/23/17 15:03 Monocytes % 7.7 % (2.0-10.0) 06/23/17 15:03 Eosinophils % 3.5 % (0.0-5.0) 06/23/17 15:03 Basophils % 0.7 % (0.0-2.0) 06/23/17 15:03 PT 9.8 SECONDS (9.5-11.5) 06/23/17 15:03 INR 0.94 (0.5-1.4) 06/23/17 15:03 Sodium 140 mEq/L (136-145) 06/23/17 15:03 Potassium 4.6 mEq/L (3.5-5.1) 06/23/17 15:03 Chloride 110 mEq/L (98-107) H 06/23/17 15:03 Carbon Dioxide 24.8 mEq/L (21.0-31.0) 06/23/17 15:03 Anion Gap 9.8 (7.0-16.0) 06/23/17 15:03 BUN 49 mg/dL (7-25) H 06/23/17 15:03 Creatinine 1.8 mg/dL (0.7-1.3) H 06/23/17 15:03 Est GFR ( Amer) TNP 06/23/17 15:03 Est GFR (Non-Af Amer) TNP 06/23/17 15:03 BUN/Creatinine Ratio 27.2 06/23/17 15:03 Glucose 96 mg/dL (70-105) 06/23/17 15:03 Calcium 9.4 mg/dL (8.6-10.3) 06/23/17 15:03 Total Bilirubin 0.5 mg/dL (0.3-1.0) 06/23/17 15:03 AST 20 U/L (13-39) 06/23/17 15:03 ALT 15 U/L (7-52) 06/23/17 15:03 Alkaline Phosphatase 86 U/L (34-104) 06/23/17 15:03 Troponin I 0.03 ng/mL (0.01-0.05) 06/23/17 15:03 Total Protein 7.1 gm/dL (6.0-8.3) 06/23/17 15:03 Albumin 4.0 gm/dL (4.2-5.5) L 06/23/17 15:03 Globulin 3.1 gm/dL 06/23/17 15:03 Albumin/Globulin Ratio 1.3 (1.0-1.8) 06/23/17 15:03 Triglycerides 158 mg/dL (<150) H 06/23/17 15:03 Cholesterol 158 mg/dL (<200) 06/23/17 15:03 LDL Cholesterol Direct 107 mg/dL (75-193) 06/23/17 15:03 HDL Cholesterol 41 mg/dL (23-92) 06/23/17 15:03 TSH 6.35 uIU/ml (0.34-5.60) H 06/23/17 15:03 Urine Source CLEAN C 06/23/17 15:20 Urine Color YELLOW 06/23/17 15:20 Urine Clarity CLOUDY (CLEAR) 06/23/17 15:20 Urine pH 6.5 (4.6 - 8.0) 06/23/17 15:20 Ur Specific [place] 1.015 (1.005-1.030) 06/23/17 15:20 Urine Protein 30 mg/dL (NEGATIVE) H 06/23/17 15:20 Urine Glucose (UA) NEGATIVE mg/dL (NEGATIVE) 06/23/17 15:20 Urine Ketones NEGATIVE mg/dL (NEGATIVE) 06/23/17 15:20 Urine Blood MODERATE (NEGATIVE) H 06/23/17 15:20 Urine Nitrate POSITIVE (NEGATIVE) H 06/23/17 15:20 Urine Bilirubin NEGATIVE (NEGATIVE) 06/23/17 15:20 Urine Urobilinogen 0.2 E.U./dL (0.2 - 1.0) 06/23/17 15:20 Ur Leukocyte Esterase LARGE (NEGATIVE) H 06/23/17 15:20 Urine RBC 10-25 /hpf (0-5) H 06/23/17 15:20 Urine WBC >100 /hpf (0-5) H 06/23/17 15:20 Ur Epithelial Cells NONE SEEN /lpf (FEW) 06/23/17 15:20 Urine Bacteria MANY /hpf (NONE SEEN) 06/23/17 15:20 RPR NONREACTIVE (NONREACTIVE) 06/23/17 15:03 - Physical Exam Vitals and I&O: Vital Signs Temp 97.1 F 06/29/17 06:39 Pulse 67 06/29/17 10:07 Resp 18 06/29/17 06:39 BP 133/77 06/29/17 10:07 Pulse Ox 97 06/29/17 06:39 Intake & Output 06/28/17 06/29/17 06/29/17 18:59 06:59 18:59 Intake Total 240 Balance 240 Intake: Oral 240 Other: # Voids 3 # Bowel Movements 0 Active Medications: Current Medications Acetaminophen (Tylenol) 650 mg PO Q4H PRN PRN Reason: Pain Or Fever above 101 Stop: 08/23/17 15:30 Last Admin: 06/26/17 09:21 Dose: 650 mg Al Hydrox/Mg Hydrox/Simethicone (Maalox) 30 ml PO Q6H PRN PRN Reason: Dyspepsia Stop: 08/23/17 15:30 Aspirin (Ecotrin) 81 mg PO DAILY ADAN Stop: 08/24/17 08:59 Last Admin: 06/29/17 10:06 Dose: Not Given Docusate Sodium (Colace) 200 mg PO DAILY ADAN Stop: 08/23/17 08:59 Last Admin: 06/29/17 10:07 Dose: Not Given Haloperidol (Haldol) 1 mg PO BID PRN; Protocol PRN Reason: Agitation Stop: 08/27/17 08:59 Lactobacillus Rhamnosus (Culturelle) 1 each PO DAILY ADAN Stop: 08/27/17 08:59 Last Admin: 06/29/17 10:07 Dose: Not Given Levothyroxine Sodium (Synthroid) 0.05 mg PO QDAC ADAN Stop: 08/24/17 07:29 Last Admin: 06/29/17 06:57 Dose: Not Given Losartan Potassium (Cozaar) 25 mg PO DAILY ADAN Stop: 08/23/17 15:44 Last Admin: 06/29/17 10:07 Dose: Not Given Miscellaneous (Probiotic Screen) 1 ea MC PRN PRN PRN Reason: PROTOCOL Stop: 08/26/17 16:44 Olanzapine (Zyprexa) 2.5 mg PO HS ADAN PRN Reason: Protocol Stop: 08/22/17 20:59 Last Admin: 06/28/17 20:10 Dose: Not Given Trimethoprim/Sulfamethoxazole (Bactrim Ds) 1 tab PO DAILY ADAN Stop: 06/30/17 08:59 Last Admin: 06/29/17 10:09 Dose: Not Given General: demented, disheveled, appears older HEENT: NC/AT, PERRLA, thinning hair, poor dentition Neck: Supple, No JVD, No LAD Lungs: CTAB Cardiovascular: RRR, Normal S1, Normal S2, with murmur Abdomen: soft, non-tender, globular, positive bowel sound Extremities: excoriation, deformity, atrophy Neurological: no change, disorganized, unable to follow command - Procedures Procedures: Procedures Procedure Code Date GROUP PSYCHOTHERAPY 61100 12/28/15 GROUP PSYCHOTHERAPY GZHZZZZ 12/28/15 INDIVID PSYCHOTHERAP NEC 94.39 09/01/09 OTHER GROUP THERAPY 94.44 04/04/15 RECREATIONAL THERAPY 93.81 12/08/09 Internal Medicine Assmt/Plan - Assessment Assessment: uti htn parkinson dementia anemia ri general debility agitation - Plan Plan: monitor bp fall precautions continue current medications psych f/u Nutritional Asmnt/Malnutr-PDOC - Dietary Evaluation Malnutrition Findings (Please click <Entered> for more info): Nutritional Asmnt/Malnutrition Start: 06/28/17 16: 08 Text: Status: Complete Freq: Document 06/28/17 16:08 GSUN (Rec: 06/28/17 16:27 [email or web address] [email or web address]) Nutritional Asmnt/Malnutrition Patient General Information Nutritional Screening Diagnosis Diagnosis Schizophrenia paranoid type acute exacerbation, Alzheimer' s dementia Pertinent Medical Hx/Surgical Hx HTN, COPD, hypothyroidism, UTI Subjective Information 87 year old male from SNF. Pt was seen inappropriately dressed pulling a table back to his room. Pt was unable to provide much meaningful responses due to cognition. Pt stated the food is food and denied nutritional concerns at this time. Avg PO intake 77% of meals since adm, meeting nutritional needs. Pt declined to be weighed, stated UBW 150lb. No severe muscle fat wasting, loose skin noted, age appropriate looking. Current Diet Order/ Nutrition Support Regular, fortified, IMANI, 4oz HPN, 8oz juice TID Pertinent Medications Colace, Haldol, Culturelle Pertinent Labs 06/23: BUN 49H, creatinine 1.8H Nutritional Hx/Data Height 5 ft 5 in Height (Calculated Centimeters) 165.1 Current Weight (lbs) 131 lb Weight (Calculated Kilograms) 59.4 Weight (Calculated Grams) 84318.6 Usual body Weight (lbs) 150 [place] Body Weight 136 Weight Status Approriate GI Symptoms Usual diet at home Jessica Yang: Fortified, IMANI , 4oz HPN, 8oz juice TID Skin Integrity/Comment: Jairon 15. Skin dryness. Current %PO Good (75-100%) Estimated Nutritional Goals Calories/Kcals/Kg UBW 150lb/68.2kg Kcals Calculated 1705-2046kcal (25-30kcal/kg) Protein Calculated 68g (1g/kg) Fluid: ml 1705-2046ml (1ml/kcal) Nutritional Problem 1. Problem Problem Impaired nutrient utilization related to Etiology unknwon etiology aeb Signs/Symptoms: BUN 49H, creatinine 1.8H Intervention/Recommendation Comments 1. Recommend low sodium diet due to elevated renal labs. 2. Remove "fortified, 4oz high protein nourishment, 8oz juice TID" as pt is receiving Boost TID and meeting nutritional needs from meals. Expected Outcomes/Goals Expected Outcomes/Goals 1. PO intake continue to meet at least 75% of estimated nutritional needs.
--- NOTE | 2017-06-30 03:21 | Progress Notes ---
DATE: 06/29/2017 SUBJECTIVE: Staff was spoken to. The patient is interviewed. Mood is noted to be irritable. Affect is constricted. The patient is isolative and withdrawn. The patient is stating that he has not done anything, why he should be given medication. The patient's coping skills are noted to be poor. The patient is reluctant to comply with any medications. Medication has been changed to Haldol with an idea that the patient can be given IM, but the patient has not given any indication that we have to medicate him intramuscularly. ASSESSMENT: The patient is still dysphoric. PLAN: To continue the patient with the current medications. I encouraged the patient to verbalize the concerns ____. Plan to work with the shoe parts caser to see if the patient can be discharged back to the facility since he has not displayed any major behavioral problems. JOB# [id number]
[2017-06-30] MEDS: Levothyroxine 0.05 Mg Tab PO SCH (06:55)
[2017-06-30] MEDS: Lactobacillus Rhamnosus 10 Billion CFU Capsule PO SCH (09:10)
[2017-06-30] MEDS: Multivitamin w/ Minerals Tab PO SCH (09:11)
--- NOTE | 2017-06-30 12:00 | Internal Medicine Prog Note ---
Internal Medicine Subjective - Subjective Service Date: 06/30/17 Patient is:: awake, verbal, interactive, kofi chair, agitated, confused Per staff patient has:: no adverse event, no episodes of fall, poor appetite, noncompliant, confused, tolerating meds Internal Medicine Objective - Results Result Diagrams: 06/23/17 15:03 06/23/17 15:03 Recent Labs: Laboratory Last Values WBC 5.4 Th/cmm (4.8-10.8) 06/23/17 15:03 RBC 3.71 Mil/cmm (3.80-5.80) L 06/23/17 15:03 Hgb 11.8 gm/dL (12.6-17.4) L 06/23/17 15:03 Hct 35.2 % (39.0-49.0) L 06/23/17 15:03 MCV 94.7 fl (80-99) 06/23/17 15:03 MCH 31.7 pg (27.0-31.0) H 06/23/17 15:03 MCHC Differential 33.4 pg (28.0-36.0) 06/23/17 15:03 RDW 12.7 % (11.5-20.0) 06/23/17 15:03 Plt Count 247 Th/cmm (150-400) 06/23/17 15:03 MPV 8.1 fl 06/23/17 15:03 Neutrophils % 69.1 % (40.0-80.0) 06/23/17 15:03 Lymphocytes % 19.0 % (20.0-50.0) L 06/23/17 15:03 Monocytes % 7.7 % (2.0-10.0) 06/23/17 15:03 Eosinophils % 3.5 % (0.0-5.0) 06/23/17 15:03 Basophils % 0.7 % (0.0-2.0) 06/23/17 15:03 PT 9.8 SECONDS (9.5-11.5) 06/23/17 15:03 INR 0.94 (0.5-1.4) 06/23/17 15:03 Sodium 140 mEq/L (136-145) 06/23/17 15:03 Potassium 4.6 mEq/L (3.5-5.1) 06/23/17 15:03 Chloride 110 mEq/L (98-107) H 06/23/17 15:03 Carbon Dioxide 24.8 mEq/L (21.0-31.0) 06/23/17 15:03 Anion Gap 9.8 (7.0-16.0) 06/23/17 15:03 BUN 49 mg/dL (7-25) H 06/23/17 15:03 Creatinine 1.8 mg/dL (0.7-1.3) H 06/23/17 15:03 Est GFR ( Amer) TNP 06/23/17 15:03 Est GFR (Non-Af Amer) TNP 06/23/17 15:03 BUN/Creatinine Ratio 27.2 06/23/17 15:03 Glucose 96 mg/dL (70-105) 06/23/17 15:03 Calcium 9.4 mg/dL (8.6-10.3) 06/23/17 15:03 Total Bilirubin 0.5 mg/dL (0.3-1.0) 06/23/17 15:03 AST 20 U/L (13-39) 06/23/17 15:03 ALT 15 U/L (7-52) 06/23/17 15:03 Alkaline Phosphatase 86 U/L (34-104) 06/23/17 15:03 Troponin I 0.03 ng/mL (0.01-0.05) 06/23/17 15:03 Total Protein 7.1 gm/dL (6.0-8.3) 06/23/17 15:03 Albumin 4.0 gm/dL (4.2-5.5) L 06/23/17 15:03 Globulin 3.1 gm/dL 06/23/17 15:03 Albumin/Globulin Ratio 1.3 (1.0-1.8) 06/23/17 15:03 Triglycerides 158 mg/dL (<150) H 06/23/17 15:03 Cholesterol 158 mg/dL (<200) 06/23/17 15:03 LDL Cholesterol Direct 107 mg/dL (75-193) 06/23/17 15:03 HDL Cholesterol 41 mg/dL (23-92) 06/23/17 15:03 TSH 6.35 uIU/ml (0.34-5.60) H 06/23/17 15:03 Urine Source CLEAN C 06/23/17 15:20 Urine Color YELLOW 06/23/17 15:20 Urine Clarity CLOUDY (CLEAR) 06/23/17 15:20 Urine pH 6.5 (4.6 - 8.0) 06/23/17 15:20 Ur Specific [place] 1.015 (1.005-1.030) 06/23/17 15:20 Urine Protein 30 mg/dL (NEGATIVE) H 06/23/17 15:20 Urine Glucose (UA) NEGATIVE mg/dL (NEGATIVE) 06/23/17 15:20 Urine Ketones NEGATIVE mg/dL (NEGATIVE) 06/23/17 15:20 Urine Blood MODERATE (NEGATIVE) H 06/23/17 15:20 Urine Nitrate POSITIVE (NEGATIVE) H 06/23/17 15:20 Urine Bilirubin NEGATIVE (NEGATIVE) 06/23/17 15:20 Urine Urobilinogen 0.2 E.U./dL (0.2 - 1.0) 06/23/17 15:20 Ur Leukocyte Esterase LARGE (NEGATIVE) H 06/23/17 15:20 Urine RBC 10-25 /hpf (0-5) H 06/23/17 15:20 Urine WBC >100 /hpf (0-5) H 06/23/17 15:20 Ur Epithelial Cells NONE SEEN /lpf (FEW) 06/23/17 15:20 Urine Bacteria MANY /hpf (NONE SEEN) 06/23/17 15:20 RPR NONREACTIVE (NONREACTIVE) 06/23/17 15:03 - Physical Exam Vitals and I&O: Vital Signs Temp 97.6 F 06/30/17 06:39 Pulse 65 06/30/17 06:39 Resp 19 06/30/17 06:39 BP 115/66 06/30/17 06:39 Pulse Ox 96 06/30/17 06:39 Intake & Output 06/29/17 06/30/17 06/30/17 18:59 06:59 18:59 Intake Total 120 Balance 120 Intake: Oral 120 Other: # Voids 3 Active Medications: Current Medications Acetaminophen (Tylenol) 650 mg PO Q4H PRN PRN Reason: Pain Or Fever above 101 Stop: 08/23/17 15:30 Last Admin: 06/26/17 09:21 Dose: 650 mg Al Hydrox/Mg Hydrox/Simethicone (Maalox) 30 ml PO Q6H PRN PRN Reason: Dyspepsia Stop: 08/23/17 15:30 Aspirin (Ecotrin) 81 mg PO DAILY ADAN Stop: 08/24/17 08:59 Last Admin: 06/30/17 09:10 Dose: Not Given Docusate Sodium (Colace) 200 mg PO DAILY ADAN Stop: 08/23/17 08:59 Last Admin: 06/30/17 09:10 Dose: Not Given Haloperidol (Haldol) 1 mg PO BID PRN; Protocol PRN Reason: Agitation Stop: 08/27/17 08:59 Lactobacillus Rhamnosus (Culturelle) 1 each PO DAILY ADAN Stop: 08/27/17 08:59 Last Admin: 06/30/17 09:10 Dose: Not Given Levothyroxine Sodium (Synthroid) 0.05 mg PO QDAC ADAN Stop: 08/24/17 07:29 Last Admin: 06/30/17 06:55 Dose: Not Given Losartan Potassium (Cozaar) 25 mg PO DAILY ADAN Stop: 08/23/17 15:44 Last Admin: 06/30/17 09:10 Dose: Not Given Miscellaneous (Probiotic Screen) 1 ea MC PRN PRN PRN Reason: PROTOCOL Stop: 08/26/17 16:44 Olanzapine (Zyprexa) 2.5 mg PO HS ADAN PRN Reason: Protocol Stop: 08/22/17 20:59 Last Admin: 06/29/17 21:00 Dose: Not Given General: demented, disheveled, appears older HEENT: NC/AT, PERRLA, thinning hair, poor dentition Neck: Supple, No JVD, No LAD Lungs: CTAB Cardiovascular: RRR, Normal S1, Normal S2, with murmur Abdomen: soft, non-tender, globular, positive bowel sound Extremities: excoriation, deformity, atrophy Neurological: no change, disorganized, unable to follow command - Procedures Procedures: Procedures Procedure Code Date GROUP PSYCHOTHERAPY 12175 12/28/15 GROUP PSYCHOTHERAPY GZHZZZZ 12/28/15 INDIVID PSYCHOTHERAP NEC 94.39 09/01/09 OTHER GROUP THERAPY 94.44 04/04/15 RECREATIONAL THERAPY 93.81 12/08/09 Internal Medicine Assmt/Plan - Assessment Assessment: uti htn parkinson dementia anemia ri general debility agitation - Plan Plan: monitor bp fall precautions continue current medications psych f/u Nutritional Asmnt/Malnutr-PDOC - Dietary Evaluation Malnutrition Findings (Please click <Entered> for more info): Nutritional Asmnt/Malnutrition Start: 06/28/17 16: 08 Text: Status: Complete Freq: Document 06/28/17 16:08 CLEMENTE (Rec: 06/28/17 16:27 [email or web address]) Nutritional Asmnt/Malnutrition Patient General Information Nutritional Screening Diagnosis Diagnosis Schizophrenia paranoid type acute exacerbation, Alzheimer' s dementia Pertinent Medical Hx/Surgical Hx HTN, COPD, hypothyroidism, UTI Subjective Information 87 year old male from SNF. Pt was seen inappropriately dressed pulling a table back to his room. Pt was unable to provide much meaningful responses due to cognition. Pt stated the food is food and denied nutritional concerns at this time. Avg PO intake 77% of meals since adm, meeting nutritional needs. Pt declined to be weighed, stated UBW 150lb. No severe muscle fat wasting, loose skin noted, age appropriate looking. Current Diet Order/ Nutrition Support Regular, fortified, IMANI, 4oz HPN, 8oz juice TID Pertinent Medications Colace, Haldol, Culturelle Pertinent Labs 06/23: BUN 49H, creatinine 1.8H Nutritional Hx/Data Height 5 ft 5 in Height (Calculated Centimeters) 165.1 Current Weight (lbs) 131 lb Weight (Calculated Kilograms) 59.4 Weight (Calculated Grams) 14260.6 Usual body Weight (lbs) 150 [place] Body Weight 136 Weight Status Approriate GI Symptoms Usual diet at home [place]: Fortified, IMANI , 4oz HPN, 8oz juice TID Skin Integrity/Comment: Jairon 15. Skin dryness. Current %PO Good (75-100%) Estimated Nutritional Goals Calories/Kcals/Kg UBW 150lb/68.2kg Kcals Calculated 1705-2046kcal (25-30kcal/kg) Protein Calculated 68g (1g/kg) Fluid: ml 1705-2046ml (1ml/kcal) Nutritional Problem 1. Problem Problem Impaired nutrient utilization related to Etiology unknwon etiology aeb Signs/Symptoms: BUN 49H, creatinine 1.8H Intervention/Recommendation Comments 1. Recommend low sodium diet due to elevated renal labs. 2. Remove "fortified, 4oz high protein nourishment, 8oz juice TID" as pt is receiving Boost TID and meeting nutritional needs from meals. Expected Outcomes/Goals Expected Outcomes/Goals 1. PO intake continue to meet at least 75% of estimated nutritional needs.
--- NOTE | 2017-07-01 01:17 | Progress Notes ---
DATE: 06/30/2017 SUBJECTIVE: Staff was spoken to. The patient is interviewed. Mood is noted to be irritable. Affect is constricted. Insight and judgment at this time are noted to be still impaired. The patient is screaming and yelling and when we offered to take the medication, the patient is stating that he ____. The patient has not gotten to the point where we need to medicate ____. I have been trying to encourage the patient to comply with the treatment so far. The patient has been reluctant. The patient continues to be like this. Possibly, the patient is going to be ____. JOB# [id number]
[2017-07-01] MEDS: Levothyroxine 0.05 Mg Tab PO SCH (06:51)
[2017-07-01] MEDS: Lactobacillus Rhamnosus 10 Billion CFU Capsule PO SCH (08:45)
[2017-07-01] MEDS: Multivitamin w/ Minerals Tab PO SCH (08:45)
--- NOTE | 2017-07-01 15:14 | Internal Medicine Prog Note ---
Internal Medicine Subjective - Subjective Service Date: 07/01/17 Patient is:: awake, verbal, interactive, kofi chair, agitated, confused Per staff patient has:: no adverse event, no episodes of fall, poor appetite, noncompliant, confused, refusing care, refusing labs Internal Medicine Objective - Results Result Diagrams: 06/23/17 15:03 06/23/17 15:03 Recent Labs: Laboratory Last Values WBC 5.4 Th/cmm (4.8-10.8) 06/23/17 15:03 RBC 3.71 Mil/cmm (3.80-5.80) L 06/23/17 15:03 Hgb 11.8 gm/dL (12.6-17.4) L 06/23/17 15:03 Hct 35.2 % (39.0-49.0) L 06/23/17 15:03 MCV 94.7 fl (80-99) 06/23/17 15:03 MCH 31.7 pg (27.0-31.0) H 06/23/17 15:03 MCHC Differential 33.4 pg (28.0-36.0) 06/23/17 15:03 RDW 12.7 % (11.5-20.0) 06/23/17 15:03 Plt Count 247 Th/cmm (150-400) 06/23/17 15:03 MPV 8.1 fl 06/23/17 15:03 Neutrophils % 69.1 % (40.0-80.0) 06/23/17 15:03 Lymphocytes % 19.0 % (20.0-50.0) L 06/23/17 15:03 Monocytes % 7.7 % (2.0-10.0) 06/23/17 15:03 Eosinophils % 3.5 % (0.0-5.0) 06/23/17 15:03 Basophils % 0.7 % (0.0-2.0) 06/23/17 15:03 PT 9.8 SECONDS (9.5-11.5) 06/23/17 15:03 INR 0.94 (0.5-1.4) 06/23/17 15:03 Sodium 140 mEq/L (136-145) 06/23/17 15:03 Potassium 4.6 mEq/L (3.5-5.1) 06/23/17 15:03 Chloride 110 mEq/L (98-107) H 06/23/17 15:03 Carbon Dioxide 24.8 mEq/L (21.0-31.0) 06/23/17 15:03 Anion Gap 9.8 (7.0-16.0) 06/23/17 15:03 BUN 49 mg/dL (7-25) H 06/23/17 15:03 Creatinine 1.8 mg/dL (0.7-1.3) H 06/23/17 15:03 Est GFR ( Amer) TNP 06/23/17 15:03 Est GFR (Non-Af Amer) TNP 06/23/17 15:03 BUN/Creatinine Ratio 27.2 06/23/17 15:03 Glucose 96 mg/dL (70-105) 06/23/17 15:03 Calcium 9.4 mg/dL (8.6-10.3) 06/23/17 15:03 Total Bilirubin 0.5 mg/dL (0.3-1.0) 06/23/17 15:03 AST 20 U/L (13-39) 06/23/17 15:03 ALT 15 U/L (7-52) 06/23/17 15:03 Alkaline Phosphatase 86 U/L (34-104) 06/23/17 15:03 Troponin I 0.03 ng/mL (0.01-0.05) 06/23/17 15:03 Total Protein 7.1 gm/dL (6.0-8.3) 06/23/17 15:03 Albumin 4.0 gm/dL (4.2-5.5) L 06/23/17 15:03 Globulin 3.1 gm/dL 06/23/17 15:03 Albumin/Globulin Ratio 1.3 (1.0-1.8) 06/23/17 15:03 Triglycerides 158 mg/dL (<150) H 06/23/17 15:03 Cholesterol 158 mg/dL (<200) 06/23/17 15:03 LDL Cholesterol Direct 107 mg/dL (75-193) 06/23/17 15:03 HDL Cholesterol 41 mg/dL (23-92) 06/23/17 15:03 TSH 6.35 uIU/ml (0.34-5.60) H 06/23/17 15:03 Urine Source CLEAN C 06/23/17 15:20 Urine Color YELLOW 06/23/17 15:20 Urine Clarity CLOUDY (CLEAR) 06/23/17 15:20 Urine pH 6.5 (4.6 - 8.0) 06/23/17 15:20 Ur Specific [place] 1.015 (1.005-1.030) 06/23/17 15:20 Urine Protein 30 mg/dL (NEGATIVE) H 06/23/17 15:20 Urine Glucose (UA) NEGATIVE mg/dL (NEGATIVE) 06/23/17 15:20 Urine Ketones NEGATIVE mg/dL (NEGATIVE) 06/23/17 15:20 Urine Blood MODERATE (NEGATIVE) H 06/23/17 15:20 Urine Nitrate POSITIVE (NEGATIVE) H 06/23/17 15:20 Urine Bilirubin NEGATIVE (NEGATIVE) 06/23/17 15:20 Urine Urobilinogen 0.2 E.U./dL (0.2 - 1.0) 06/23/17 15:20 Ur Leukocyte Esterase LARGE (NEGATIVE) H 06/23/17 15:20 Urine RBC 10-25 /hpf (0-5) H 06/23/17 15:20 Urine WBC >100 /hpf (0-5) H 06/23/17 15:20 Ur Epithelial Cells NONE SEEN /lpf (FEW) 06/23/17 15:20 Urine Bacteria MANY /hpf (NONE SEEN) 06/23/17 15:20 RPR NONREACTIVE (NONREACTIVE) 06/23/17 15:03 - Physical Exam Vitals and I&O: Vital Signs Temp 97.5 F 07/01/17 05:56 Pulse 61 07/01/17 08:45 Resp 19 07/01/17 05:56 BP 112/65 07/01/17 08:45 Pulse Ox 98 07/01/17 05:56 Intake & Output 06/30/17 07/01/17 07/01/17 18:59 06:59 18:59 Intake Total 700 240 Balance 700 240 Intake: Oral 700 240 Other: # Voids 3 2 # Bowel Movements 1 Active Medications: Current Medications Acetaminophen (Tylenol) 650 mg PO Q4H PRN PRN Reason: Pain Or Fever above 101 Stop: 08/23/17 15:30 Last Admin: 06/26/17 09:21 Dose: 650 mg Al Hydrox/Mg Hydrox/Simethicone (Maalox) 30 ml PO Q6H PRN PRN Reason: Dyspepsia Stop: 08/23/17 15:30 Aspirin (Ecotrin) 81 mg PO DAILY ADAN Stop: 08/24/17 08:59 Last Admin: 07/01/17 08:44 Dose: 81 mg Docusate Sodium (Colace) 200 mg PO DAILY ADAN Stop: 08/23/17 08:59 Last Admin: 07/01/17 08:44 Dose: 200 mg Haloperidol (Haldol) 1 mg PO BID PRN; Protocol PRN Reason: Agitation Stop: 08/27/17 08:59 Lactobacillus Rhamnosus (Culturelle) 1 each PO DAILY ADAN Stop: 08/27/17 08:59 Last Admin: 07/01/17 08:45 Dose: 1 each Levothyroxine Sodium (Synthroid) 0.05 mg PO QDAC ADAN Stop: 08/24/17 07:29 Last Admin: 07/01/17 06:51 Dose: Not Given Losartan Potassium (Cozaar) 25 mg PO DAILY ADAN Stop: 08/23/17 15:44 Last Admin: 07/01/17 08:45 Dose: 25 mg Miscellaneous (Probiotic Screen) 1 ea MC PRN PRN PRN Reason: PROTOCOL Stop: 08/26/17 16:44 Olanzapine (Zyprexa) 2.5 mg PO HS ADAN PRN Reason: Protocol Stop: 08/22/17 20:59 Last Admin: 06/30/17 20:47 Dose: Not Given General: demented, disheveled, appears older HEENT: NC/AT, PERRLA, thinning hair, poor dentition Neck: Supple, No JVD, No LAD Lungs: CTAB Cardiovascular: RRR, Normal S1, Normal S2, with murmur Abdomen: soft, non-tender, globular, positive bowel sound Extremities: excoriation, deformity, atrophy Neurological: no change, disorganized, unable to follow command - Procedures Procedures: Procedures Procedure Code Date GROUP PSYCHOTHERAPY 94185 12/28/15 GROUP PSYCHOTHERAPY GZHZZZZ 12/28/15 INDIVID PSYCHOTHERAP NEC 94.39 09/01/09 OTHER GROUP THERAPY 94.44 04/04/15 RECREATIONAL THERAPY 93.81 12/08/09 Internal Medicine Assmt/Plan - Assessment Assessment: uti htn parkinson dementia anemia ri general debility agitation - Plan Plan: monitor bp fall precautions continue current medications psych f/u Nutritional Asmnt/Malnutr-PDOC - Dietary Evaluation Malnutrition Findings (Please click <Entered> for more info): Nutritional Asmnt/Malnutrition Start: 06/28/17 16: 08 Text: Status: Complete Freq: Document 06/28/17 16:08 CLEMENTE (Rec: 06/28/17 16:27 [id number] [email or web address]) Nutritional Asmnt/Malnutrition Patient General Information Nutritional Screening Diagnosis Diagnosis Schizophrenia paranoid type acute exacerbation, Alzheimer' s dementia Pertinent Medical Hx/Surgical Hx HTN, COPD, hypothyroidism, UTI Subjective Information 87 year old male from SNF. Pt was seen inappropriately dressed pulling a table back to his room. Pt was unable to provide much meaningful responses due to cognition. Pt stated the food is food and denied nutritional concerns at this time. Avg PO intake 77% of meals since adm, meeting nutritional needs. Pt declined to be weighed, stated UBW 150lb. No severe muscle fat wasting, loose skin noted, age appropriate looking. Current Diet Order/ Nutrition Support Regular, fortified, IMANI, 4oz HPN, 8oz juice TID Pertinent Medications Colace, Haldol, Culturelle Pertinent Labs 06/23: BUN 49H, creatinine 1.8H Nutritional Hx/Data Height 5 ft 5 in Height (Calculated Centimeters) 165.1 Current Weight (lbs) 131 lb Weight (Calculated Kilograms) 59.4 Weight (Calculated Grams) 43014.6 Usual body Weight (lbs) 150 [place] Body Weight 136 Weight Status Approriate GI Symptoms Usual diet at home Jessica [place]: Fortified, IMANI , 4oz HPN, 8oz juice TID Skin Integrity/Comment: Jairon 15. Skin dryness. Current %PO Good (75-100%) Estimated Nutritional Goals Calories/Kcals/Kg UBW 150lb/68.2kg Kcals Calculated 1705-2046kcal (25-30kcal/kg) Protein Calculated 68g (1g/kg) Fluid: ml 1705-2046ml (1ml/kcal) Nutritional Problem 1. Problem Problem Impaired nutrient utilization related to Etiology unknwon etiology aeb Signs/Symptoms: BUN 49H, creatinine 1.8H Intervention/Recommendation Comments 1. Recommend low sodium diet due to elevated renal labs. 2. Remove "fortified, 4oz high protein nourishment, 8oz juice TID" as pt is receiving Boost TID and meeting nutritional needs from meals. Expected Outcomes/Goals Expected Outcomes/Goals 1. PO intake continue to meet at least 75% of estimated nutritional needs.
[2017-07-02] MEDS: Levothyroxine 0.05 Mg Tab PO SCH (09:41)
[2017-07-02] MEDS: Lactobacillus Rhamnosus 10 Billion CFU Capsule PO SCH (09:41)
[2017-07-02] MEDS: Multivitamin w/ Minerals Tab PO SCH (09:42)
--- NOTE | 2017-07-02 15:01 | Internal Medicine Prog Note ---
Internal Medicine Subjective - Subjective Service Date: 07/02/17 Patient is:: awake, verbal, interactive, kofi chair, agitated, confused Per staff patient has:: no adverse event, no episodes of fall, poor appetite, noncompliant, confused, refusing care, refusing labs Internal Medicine Objective - Results Result Diagrams: 06/23/17 15:03 06/23/17 15:03 Recent Labs: Laboratory Last Values WBC 5.4 Th/cmm (4.8-10.8) 06/23/17 15:03 RBC 3.71 Mil/cmm (3.80-5.80) L 06/23/17 15:03 Hgb 11.8 gm/dL (12.6-17.4) L 06/23/17 15:03 Hct 35.2 % (39.0-49.0) L 06/23/17 15:03 MCV 94.7 fl (80-99) 06/23/17 15:03 MCH 31.7 pg (27.0-31.0) H 06/23/17 15:03 MCHC Differential 33.4 pg (28.0-36.0) 06/23/17 15:03 RDW 12.7 % (11.5-20.0) 06/23/17 15:03 Plt Count 247 Th/cmm (150-400) 06/23/17 15:03 MPV 8.1 fl 06/23/17 15:03 Neutrophils % 69.1 % (40.0-80.0) 06/23/17 15:03 Lymphocytes % 19.0 % (20.0-50.0) L 06/23/17 15:03 Monocytes % 7.7 % (2.0-10.0) 06/23/17 15:03 Eosinophils % 3.5 % (0.0-5.0) 06/23/17 15:03 Basophils % 0.7 % (0.0-2.0) 06/23/17 15:03 PT 9.8 SECONDS (9.5-11.5) 06/23/17 15:03 INR 0.94 (0.5-1.4) 06/23/17 15:03 Sodium 140 mEq/L (136-145) 06/23/17 15:03 Potassium 4.6 mEq/L (3.5-5.1) 06/23/17 15:03 Chloride 110 mEq/L (98-107) H 06/23/17 15:03 Carbon Dioxide 24.8 mEq/L (21.0-31.0) 06/23/17 15:03 Anion Gap 9.8 (7.0-16.0) 06/23/17 15:03 BUN 49 mg/dL (7-25) H 06/23/17 15:03 Creatinine 1.8 mg/dL (0.7-1.3) H 06/23/17 15:03 Est GFR ( Amer) TNP 06/23/17 15:03 Est GFR (Non-Af Amer) TNP 06/23/17 15:03 BUN/Creatinine Ratio 27.2 06/23/17 15:03 Glucose 96 mg/dL (70-105) 06/23/17 15:03 Calcium 9.4 mg/dL (8.6-10.3) 06/23/17 15:03 Total Bilirubin 0.5 mg/dL (0.3-1.0) 06/23/17 15:03 AST 20 U/L (13-39) 06/23/17 15:03 ALT 15 U/L (7-52) 06/23/17 15:03 Alkaline Phosphatase 86 U/L (34-104) 06/23/17 15:03 Troponin I 0.03 ng/mL (0.01-0.05) 06/23/17 15:03 Total Protein 7.1 gm/dL (6.0-8.3) 06/23/17 15:03 Albumin 4.0 gm/dL (4.2-5.5) L 06/23/17 15:03 Globulin 3.1 gm/dL 06/23/17 15:03 Albumin/Globulin Ratio 1.3 (1.0-1.8) 06/23/17 15:03 Triglycerides 158 mg/dL (<150) H 06/23/17 15:03 Cholesterol 158 mg/dL (<200) 06/23/17 15:03 LDL Cholesterol Direct 107 mg/dL (75-193) 06/23/17 15:03 HDL Cholesterol 41 mg/dL (23-92) 06/23/17 15:03 TSH 6.35 uIU/ml (0.34-5.60) H 06/23/17 15:03 Urine Source CLEAN C 06/23/17 15:20 Urine Color YELLOW 06/23/17 15:20 Urine Clarity CLOUDY (CLEAR) 06/23/17 15:20 Urine pH 6.5 (4.6 - 8.0) 06/23/17 15:20 Ur Specific [place] 1.015 (1.005-1.030) 06/23/17 15:20 Urine Protein 30 mg/dL (NEGATIVE) H 06/23/17 15:20 Urine Glucose (UA) NEGATIVE mg/dL (NEGATIVE) 06/23/17 15:20 Urine Ketones NEGATIVE mg/dL (NEGATIVE) 06/23/17 15:20 Urine Blood MODERATE (NEGATIVE) H 06/23/17 15:20 Urine Nitrate POSITIVE (NEGATIVE) H 06/23/17 15:20 Urine Bilirubin NEGATIVE (NEGATIVE) 06/23/17 15:20 Urine Urobilinogen 0.2 E.U./dL (0.2 - 1.0) 06/23/17 15:20 Ur Leukocyte Esterase LARGE (NEGATIVE) H 06/23/17 15:20 Urine RBC 10-25 /hpf (0-5) H 06/23/17 15:20 Urine WBC >100 /hpf (0-5) H 06/23/17 15:20 Ur Epithelial Cells NONE SEEN /lpf (FEW) 06/23/17 15:20 Urine Bacteria MANY /hpf (NONE SEEN) 06/23/17 15:20 RPR NONREACTIVE (NONREACTIVE) 06/23/17 15:03 - Physical Exam Vitals and I&O: Vital Signs Temp 98.1 F 07/02/17 06:46 Pulse 57 07/02/17 09:41 Resp 19 07/02/17 08:00 BP 139/59 07/02/17 09:41 Pulse Ox 97 07/02/17 06:46 Intake & Output 07/01/17 07/02/17 07/02/17 18:59 06:59 18:59 Intake Total 900 360 Balance 900 360 Intake: Oral 900 360 Other: # Voids 4 1 # Bowel Movements 1 Active Medications: Current Medications Acetaminophen (Tylenol) 650 mg PO Q4H PRN PRN Reason: Pain Or Fever above 101 Stop: 08/23/17 15:30 Last Admin: 06/26/17 09:21 Dose: 650 mg Al Hydrox/Mg Hydrox/Simethicone (Maalox) 30 ml PO Q6H PRN PRN Reason: Dyspepsia Stop: 08/23/17 15:30 Aspirin (Ecotrin) 81 mg PO DAILY ADAN Stop: 08/24/17 08:59 Last Admin: 07/02/17 09:41 Dose: Not Given Docusate Sodium (Colace) 200 mg PO DAILY ADAN Stop: 08/23/17 08:59 Last Admin: 07/02/17 09:41 Dose: Not Given Haloperidol (Haldol) 1 mg PO BID PRN; Protocol PRN Reason: Agitation Stop: 08/27/17 08:59 Levothyroxine Sodium (Synthroid) 0.05 mg PO QDAC ADAN Stop: 08/24/17 07:29 Last Admin: 07/02/17 09:41 Dose: Not Given Losartan Potassium (Cozaar) 25 mg PO DAILY ADAN Stop: 08/23/17 15:44 Last Admin: 07/02/17 09:41 Dose: Not Given Olanzapine (Zyprexa) 2.5 mg PO HS ADAN PRN Reason: Protocol Stop: 08/22/17 20:59 Last Admin: 07/01/17 20:34 Dose: Not Given General: demented, disheveled, appears older HEENT: NC/AT, PERRLA, thinning hair, poor dentition Neck: Supple, No JVD, No LAD Lungs: CTAB Cardiovascular: RRR, Normal S1, Normal S2, with murmur Abdomen: soft, non-tender, globular, positive bowel sound Extremities: excoriation, deformity, atrophy Neurological: no change, disorganized, unable to follow command - Procedures Procedures: Procedures Procedure Code Date GROUP PSYCHOTHERAPY 90487 12/28/15 GROUP PSYCHOTHERAPY GZHZZZZ 12/28/15 INDIVID PSYCHOTHERAP NEC 94.39 09/01/09 OTHER GROUP THERAPY 94.44 04/04/15 RECREATIONAL THERAPY 93.81 12/08/09 Internal Medicine Assmt/Plan - Assessment Assessment: uti htn parkinson dementia anemia ri general debility agitation - Plan Plan: monitor bp fall precautions continue current medications psych f/u Nutritional Asmnt/Malnutr-PDOC - Dietary Evaluation Malnutrition Findings (Please click <Entered> for more info): Nutritional Asmnt/Malnutrition Start: 06/28/17 16: 08 Text: Status: Complete Freq: Document 06/28/17 16:08 CLEMENTE (Rec: 06/28/17 16:27 [email or web address]) Nutritional Asmnt/Malnutrition Patient General Information Nutritional Screening Diagnosis Diagnosis Schizophrenia paranoid type acute exacerbation, Alzheimer' s dementia Pertinent Medical Hx/Surgical Hx HTN, COPD, hypothyroidism, UTI Subjective Information 87 year old male from SNF. Pt was seen inappropriately dressed pulling a table back to his room. Pt was unable to provide much meaningful responses due to cognition. Pt stated the food is food and denied nutritional concerns at this time. Avg PO intake 77% of meals since adm, meeting nutritional needs. Pt declined to be weighed, stated UBW 150lb. No severe muscle fat wasting, loose skin noted, age appropriate looking. Current Diet Order/ Nutrition Support Regular, fortified, IMANI, 4oz HPN, 8oz juice TID Pertinent Medications Colace, Haldol, Culturelle Pertinent Labs 06/23: BUN 49H, creatinine 1.8H Nutritional Hx/Data Height 5 ft 5 in Height (Calculated Centimeters) 165.1 Current Weight (lbs) 131 lb Weight (Calculated Kilograms) 59.4 Weight (Calculated Grams) 65192.6 Usual body Weight (lbs) 150 [place] Body Weight 136 Weight Status Approriate GI Symptoms Usual diet at home [place]: Fortified, IMANI , 4oz HPN, 8oz juice TID Skin Integrity/Comment: Jairon 15. Skin dryness. Current %PO Good (75-100%) Estimated Nutritional Goals Calories/Kcals/Kg UBW 150lb/68.2kg Kcals Calculated 1705-2046kcal (25-30kcal/kg) Protein Calculated 68g (1g/kg) Fluid: ml 1705-2046ml (1ml/kcal) Nutritional Problem 1. Problem Problem Impaired nutrient utilization related to Etiology unknwon etiology aeb Signs/Symptoms: BUN 49H, creatinine 1.8H Intervention/Recommendation Comments 1. Recommend low sodium diet due to elevated renal labs. 2. Remove "fortified, 4oz high protein nourishment, 8oz juice TID" as pt is receiving Boost TID and meeting nutritional needs from meals. Expected Outcomes/Goals Expected Outcomes/Goals 1. PO intake continue to meet at least 75% of estimated nutritional needs.
--- NOTE | 2017-07-02 21:16 | Progress Notes ---
DATE: 07/01/2017 SUBJECTIVE: Staff was spoken to. The patient is interviewed. Mood is noted to be irritable. The patient is stating that he does not need any medications. The patient is stating that he has not done anything to hurt himself. The patient has been getting easily upset and agitated. Staff are reporting that are episodes where the patient has some violent, but could be redirectable with no need for any intramuscular dose of the medication. The patient at this time has been cooperating this morning. ASSESSMENT: The patient's impulsivity is coming under control. PLAN: To continue the patient with the supportive therapy. I encouraged the patient to verbalize the concerns rather than to act out. JOB# [id number]
[2017-07-03] MEDS: Levothyroxine 0.05 Mg Tab PO SCH (06:46)
[2017-07-03] MEDS: Multivitamin w/ Minerals Tab PO SCH (09:25)
--- NOTE | 2017-07-03 10:31 | Progress Notes ---
DATE: 06/28/2017 PSYCHIATRIC PROGRESS NOTE SUBJECTIVE: Staff was spoken to. The patient is interviewed. Mood is noted to be less irritable. Affect is appropriate. The patient is stating that he has been sleeping okay and he does not like to get into any of the groups. The patient is not reported to be presenting with any behavioral problems today and that the need for intramuscular injection is noted to be minimally even though the patient has been refusing to comply with the treatment. ASSESSMENT: The patient's irritability is coming down and patient is not impulsive. PLAN: To continue the patient with the supportive therapy and followup. JOB# [id number]
--- NOTE | 2017-07-03 13:46 | Internal Medicine Prog Note ---
Internal Medicine Subjective - Subjective Service Date: 07/03/17 Patient is:: awake, verbal, interactive, kofi chair, agitated, confused Per staff patient has:: no adverse event, no episodes of fall, poor appetite, noncompliant, confused, refusing care, refusing labs Internal Medicine Objective - Results Result Diagrams: 06/23/17 15:03 06/23/17 15:03 Recent Labs: Laboratory Last Values WBC 5.4 Th/cmm (4.8-10.8) 06/23/17 15:03 RBC 3.71 Mil/cmm (3.80-5.80) L 06/23/17 15:03 Hgb 11.8 gm/dL (12.6-17.4) L 06/23/17 15:03 Hct 35.2 % (39.0-49.0) L 06/23/17 15:03 MCV 94.7 fl (80-99) 06/23/17 15:03 MCH 31.7 pg (27.0-31.0) H 06/23/17 15:03 MCHC Differential 33.4 pg (28.0-36.0) 06/23/17 15:03 RDW 12.7 % (11.5-20.0) 06/23/17 15:03 Plt Count 247 Th/cmm (150-400) 06/23/17 15:03 MPV 8.1 fl 06/23/17 15:03 Neutrophils % 69.1 % (40.0-80.0) 06/23/17 15:03 Lymphocytes % 19.0 % (20.0-50.0) L 06/23/17 15:03 Monocytes % 7.7 % (2.0-10.0) 06/23/17 15:03 Eosinophils % 3.5 % (0.0-5.0) 06/23/17 15:03 Basophils % 0.7 % (0.0-2.0) 06/23/17 15:03 PT 9.8 SECONDS (9.5-11.5) 06/23/17 15:03 INR 0.94 (0.5-1.4) 06/23/17 15:03 Sodium 140 mEq/L (136-145) 06/23/17 15:03 Potassium 4.6 mEq/L (3.5-5.1) 06/23/17 15:03 Chloride 110 mEq/L (98-107) H 06/23/17 15:03 Carbon Dioxide 24.8 mEq/L (21.0-31.0) 06/23/17 15:03 Anion Gap 9.8 (7.0-16.0) 06/23/17 15:03 BUN 49 mg/dL (7-25) H 06/23/17 15:03 Creatinine 1.8 mg/dL (0.7-1.3) H 06/23/17 15:03 Est GFR ( Amer) TNP 06/23/17 15:03 Est GFR (Non-Af Amer) TNP 06/23/17 15:03 BUN/Creatinine Ratio 27.2 06/23/17 15:03 Glucose 96 mg/dL (70-105) 06/23/17 15:03 Calcium 9.4 mg/dL (8.6-10.3) 06/23/17 15:03 Total Bilirubin 0.5 mg/dL (0.3-1.0) 06/23/17 15:03 AST 20 U/L (13-39) 06/23/17 15:03 ALT 15 U/L (7-52) 06/23/17 15:03 Alkaline Phosphatase 86 U/L (34-104) 06/23/17 15:03 Troponin I 0.03 ng/mL (0.01-0.05) 06/23/17 15:03 Total Protein 7.1 gm/dL (6.0-8.3) 06/23/17 15:03 Albumin 4.0 gm/dL (4.2-5.5) L 06/23/17 15:03 Globulin 3.1 gm/dL 06/23/17 15:03 Albumin/Globulin Ratio 1.3 (1.0-1.8) 06/23/17 15:03 Triglycerides 158 mg/dL (<150) H 06/23/17 15:03 Cholesterol 158 mg/dL (<200) 06/23/17 15:03 LDL Cholesterol Direct 107 mg/dL (75-193) 06/23/17 15:03 HDL Cholesterol 41 mg/dL (23-92) 06/23/17 15:03 TSH 6.35 uIU/ml (0.34-5.60) H 06/23/17 15:03 Urine Source CLEAN C 06/23/17 15:20 Urine Color YELLOW 06/23/17 15:20 Urine Clarity CLOUDY (CLEAR) 06/23/17 15:20 Urine pH 6.5 (4.6 - 8.0) 06/23/17 15:20 Ur Specific Hank[place] 1.015 (1.005-1.030) 06/23/17 15:20 Urine Protein 30 mg/dL (NEGATIVE) H 06/23/17 15:20 Urine Glucose (UA) NEGATIVE mg/dL (NEGATIVE) 06/23/17 15:20 Urine Ketones NEGATIVE mg/dL (NEGATIVE) 06/23/17 15:20 Urine Blood MODERATE (NEGATIVE) H 06/23/17 15:20 Urine Nitrate POSITIVE (NEGATIVE) H 06/23/17 15:20 Urine Bilirubin NEGATIVE (NEGATIVE) 06/23/17 15:20 Urine Urobilinogen 0.2 E.U./dL (0.2 - 1.0) 06/23/17 15:20 Ur Leukocyte Esterase LARGE (NEGATIVE) H 06/23/17 15:20 Urine RBC 10-25 /hpf (0-5) H 06/23/17 15:20 Urine WBC >100 /hpf (0-5) H 06/23/17 15:20 Ur Epithelial Cells NONE SEEN /lpf (FEW) 06/23/17 15:20 Urine Bacteria MANY /hpf (NONE SEEN) 06/23/17 15:20 RPR NONREACTIVE (NONREACTIVE) 06/23/17 15:03 - Physical Exam Vitals and I&O: Vital Signs Temp 98.0 F 07/03/17 09:32 Pulse 62 07/03/17 09:32 Resp 18 07/03/17 09:32 BP 109/53 07/03/17 09:32 Pulse Ox 95 07/03/17 09:32 Intake & Output 07/02/17 07/03/17 07/03/17 18:59 06:59 18:59 Intake Total 850 240 Balance 850 240 Intake: Oral 850 240 Other: # Voids 4 2 # Bowel Movements 1 0 Active Medications: Current Medications Acetaminophen (Tylenol) 650 mg PO Q4H PRN PRN Reason: Pain Or Fever above 101 Stop: 08/23/17 15:30 Last Admin: 06/26/17 09:21 Dose: 650 mg Al Hydrox/Mg Hydrox/Simethicone (Maalox) 30 ml PO Q6H PRN PRN Reason: Dyspepsia Stop: 08/23/17 15:30 Aspirin (Ecotrin) 81 mg PO DAILY ADAN Stop: 08/24/17 08:59 Last Admin: 07/03/17 09:23 Dose: Not Given Docusate Sodium (Colace) 200 mg PO DAILY ADAN Stop: 08/23/17 08:59 Last Admin: 07/03/17 09:23 Dose: Not Given Haloperidol (Haldol) 1 mg PO BID PRN; Protocol PRN Reason: Agitation Stop: 08/27/17 08:59 Levothyroxine Sodium (Synthroid) 0.05 mg PO QDAC ADAN Stop: 08/24/17 07:29 Last Admin: 07/03/17 06:46 Dose: Not Given Losartan Potassium (Cozaar) 25 mg PO DAILY ADAN Stop: 08/23/17 15:44 Last Admin: 07/03/17 09:24 Dose: Not Given Olanzapine (Zyprexa) 2.5 mg PO HS ADAN PRN Reason: Protocol Stop: 08/22/17 20:59 Last Admin: 07/02/17 20:27 Dose: Not Given General: demented, disheveled, appears older HEENT: NC/AT, PERRLA, thinning hair, poor dentition Neck: Supple, No JVD, No LAD Lungs: CTAB Cardiovascular: RRR, Normal S1, Normal S2, with murmur Abdomen: soft, non-tender, globular, positive bowel sound Extremities: excoriation, deformity, atrophy Neurological: no change, disorganized, unable to follow command - Procedures Procedures: Procedures Procedure Code Date GROUP PSYCHOTHERAPY 61972 12/28/15 GROUP PSYCHOTHERAPY [id number] 12/28/15 INDIVID PSYCHOTHERAP NEC 94.39 09/01/09 OTHER GROUP THERAPY 94.44 04/04/15 RECREATIONAL THERAPY 93.81 12/08/09 Internal Medicine Assmt/Plan - Assessment Assessment: uti htn parkinson dementia anemia ri general debility agitation - Plan Plan: monitor bp fall precautions continue current medications psych f/u Nutritional Asmnt/Malnutr-PDOC - Dietary Evaluation Malnutrition Findings (Please click <Entered> for more info): Nutritional Asmnt/Malnutrition Start: 06/28/17 16: 08 Text: Status: Complete Freq: Document 06/28/17 16:08 CLEMENTE (Rec: 06/28/17 16:27 [email or web address] [id number]) Nutritional Asmnt/Malnutrition Patient General Information Nutritional Screening Diagnosis Diagnosis Schizophrenia paranoid type acute exacerbation, Alzheimer' s dementia Pertinent Medical Hx/Surgical Hx HTN, COPD, hypothyroidism, UTI Subjective Information 87 year old male from SNF. Pt was seen inappropriately dressed pulling a table back to his room. Pt was unable to provide much meaningful responses due to cognition. Pt stated the food is food and denied nutritional concerns at this time. Avg PO intake 77% of meals since adm, meeting nutritional needs. Pt declined to be weighed, stated UBW 150lb. No severe muscle fat wasting, loose skin noted, age appropriate looking. Current Diet Order/ Nutrition Support Regular, fortified, IMANI, 4oz HPN, 8oz juice TID Pertinent Medications Colace, Haldol, Culturelle Pertinent Labs 06/23: BUN 49H, creatinine 1.8H Nutritional Hx/Data Height 5 ft 5 in Height (Calculated Centimeters) 165.1 Current Weight (lbs) 131 lb Weight (Calculated Kilograms) 59.4 Weight (Calculated Grams) 45483.6 Usual body Weight (lbs) 150 [place] Body Weight 136 Weight Status Approriate GI Symptoms Usual diet at home [place]: Fortified, IMANI , 4oz HPN, 8oz juice TID Skin Integrity/Comment: Jairon 15. Skin dryness. Current %PO Good (75-100%) Estimated Nutritional Goals Calories/Kcals/Kg UBW 150lb/68.2kg Kcals Calculated 1705-2046kcal (25-30kcal/kg) Protein Calculated 68g (1g/kg) Fluid: ml 1705-2046ml (1ml/kcal) Nutritional Problem 1. Problem Problem Impaired nutrient utilization related to Etiology unknwon etiology aeb Signs/Symptoms: BUN 49H, creatinine 1.8H Intervention/Recommendation Comments 1. Recommend low sodium diet due to elevated renal labs. 2. Remove "fortified, 4oz high protein nourishment, 8oz juice TID" as pt is receiving Boost TID and meeting nutritional needs from meals. Expected Outcomes/Goals Expected Outcomes/Goals 1. PO intake continue to meet at least 75% of estimated nutritional needs.
--- NOTE | 2017-07-04 05:03 | Progress Notes ---
DATE: 07/03/2017 PSYCHIATRIC PROGRESS NOTE Staff was spoken to. The patient is interviewed. Mood is noted to be anxious. Affect is appropriate. Not suicidal or homicidal. Insight and judgment were fair at this time. Impulse control is noted to be fair. The patient has been able to verbalize the concerns rather than to act out. The patient has been stating that he has been taking medications and he has been feeling well and he does not need to be in here. The patient has pain, so far not caused any major impulse control problems and hence it is decided to discharge the patient today back to the facility. JOB# [id number]
--- NOTE | 2017-07-12 19:23 | Discharge Summary ---
DATE OF DISCHARGE: 07/03/2017 REASON FOR HOSPITALIZATION: Schizophrenia, paranoid type, acute exacerbation; dementia, Alzheimer's type. HISTORY OF PRESENT ILLNESS: The patient is an 87-year-old male with a history of chronic mental illness, was transferred to the hospital for increased anger outburst, agitation, yelling, pushing staff. The patient was tolerating himself, non-redirectable and refusing care. HOSPITALIZATION COURSE: Supportive measures were implemented. The patient's compliance with medication was an issue. Over time agitation resolved, sleep improved, appetite was monitored closely, aggressiveness and anger outbursts subsided down. The back to baseline on and he was discharged back to [facility] facility on 07/03/2017. FINAL DIAGNOSES: Schizophrenia, paranoid type and dementia, Alzheimer's type, advanced. MEDICAL: Hypertension, history of Parkinson and urinary tract infection, treated. CONDITION ON DISCHARGE: Improved. No agitation or aggressive behavior. Fair sleep and appetite. [facility]# [id number]
== END 2017-07-03 19:25 | disposition home or self-care (01) | DRG 885 ==
LOC: ER 14:46 → GERO 16:01
DX: F20.0 Paranoid schizophrenia (principal); G20 Parkinson's disease; E46 Unspecified protein-calorie malnutrition; F02.81 Dementia in other diseases classified elsewhere, unspecified severity, with behavioral disturbance; N39.0 Urinary tract infection, site not specified; E87.1 Hypo-osmolality and hyponatremia; G30.9 Alzheimer's disease, unspecified; R00.1 Bradycardia, unspecified; E03.9 Hypothyroidism, unspecified; D64.9 Anemia, unspecified; J44.9 Chronic obstructive pulmonary disease, unspecified; I10 Essential (primary) hypertension; N28.9 Disorder of kidney and ureter, unspecified; I25.10 Atherosclerotic heart disease of native coronary artery without angina pectoris; R53.1 Weakness; Z88.0 Allergy status to penicillin; Z68.21 Body mass index [BMI] 21.0-21.9, adult
CPT/HCPCS: 36415-UA; 71010-TC; 80053-TC; 80061-TC; 81001-TC; 84443-TC; 84484-TC; 85025-TC; 85610-TC; 86592-TC; 87086-90; 93005; 96374; J0696; Z7610